=== PATIENT | female | born 1995 | race Caucasian/White ===

== ENCOUNTER 2023-02-15 11:06 | Outpatient (CLI) | payer BC, SELFPAY ==
[2023-02-15 12:12] LABS: Basophils Percent Auto 0.3 % (0.2-1.2); Eosinophils Percent Auto 0.4 % (0-4.4); Hematocrit 35.4 % (37.0-47.0); Hemoglobin 11.3 g/dL (12.0-15.0); Immature Granulocyte Absolute 0.03 K/mm3 (0.00-0.031); Immature Granulocyte Percent A 0.3 % (0-0.5); Lymphocytes Absolute Auto 1.74 K/mm3 (0.9-3.2); Lymphocytes Percent Auto 17.4 % (18.3-44.2); Mean Corpuscular HGB Conc 31.9 g/dl (32-36); Mean Corpuscular Hemoglobin 30.5 pg (26-34); Mean Corpuscular Volume 95.7 fl (80-100); Monocytes Absolute Auto 0.7 K/mm3 (0.1-0.6); Monocytes Percent Auto 7.4 % (2.6-8.5); Neutrophils Absolute Auto 7.4 K/mm3 (1.3-6.7); Neutrophils Percent Auto 74.2 % (45.5-73.1); Platelet Count Result 181 k/mm3 (150-375); Red Cell Distribution Width 13.7 % (11.5-14.5)
[2023-02-15 12:45] LABS: Rapid Plasma Reagin Non-Reactive (NonReactive)
== END 2023-02-15 11:07 | disposition home or self-care (01) ==
PROVIDERS: PCP Physician Assistant; Visit Provider Obstetrics & Gynecology
DX: Z01.818 Encounter for other preprocedural examination (principal)
CPT/HCPCS: 36415; 85025; 86592; 86850; 86900; 86901

== ENCOUNTER 2023-02-16 05:18 | Inpatient (IN) | payer BC, SELFPAY ==
[2023-02-16] VITALS (53 sets, daily range): BP systolic 83–139; BP diastolic 41–88; PULSE 45–81; RESP 13–18; TEMP 36.1–37.2; O2SAT 95–100; BMI 23.3
[2023-02-16] MEDS: LACTATED RINGERS 1,000 ML 125 ML IV CONT (07:00)
--- NOTE | 2023-02-16 07:08 | P.PNAN_ITS ---
Anes - Initial Pre Proc Eval Procedure: Operation Date: 02/16/23 07:30 Proposed Procedures p Section - Sophie Ward MD Date/Time: 02/16/23 07:08 Surgeon: Sophie Ward MD Pre Op Diagnosis: C/S Patient Data Age: 28 Gender: F Height: 1.57 m Weight: 58 kg Last Vital Signs Pulse 62 02/16/23 07:01 BP 83/58 L 02/16/23 07:01 O2 Del Method Room Air 02/16/23 06:40 Allergies Allergy/AdvReac Type Severity Reaction Status Date / Time No Known Allergies Allergy Verified 01/25/23 12:14 Home Medications Medication Instructions Recorded Confirmed Type famotidine 20 mg tablet (Pepcid) 20 mg PO HS 01/25/23 02/16/23 History vits no.126-ferrous fum 1 tablet PO DAILY 01/25/23 01/25/23 History 28 mg iron-folic acid 800 mcg tablet (Classic ) Patient hx anesthesia problems: none Family hx anesthesia problems: none Results Review: All pre-operative results and documents have been reviewed as part of the pre- operative evaluation. [facility] Family History Family History Father Diabetes mellitus Mother Depression Social History Social History Smoking status: Never smoker Substance use: never Lack of Transportation: No Lack of Food: Never True Current Housing: I Have Housing Concerned About Future Housing: No Difficulty Paying Gas/Electric Bills: No Difficulty Paying for Meds: No Currently Unemployed: No Education: Bachelor's Degree Difficulty w/ Childcare or Family Care: No Spiritual care concerns: No Anes - Eval Final PreProcedure Day of Procedure 02/16/23 07:08 Patient weight: normal Heart: regular rate and rhythm Lungs: clear to auscultation Airway: Mallampati scale class II Neurological: alert and oriented Last oral intake: >/= 8 hours ASA classification: II Emergent: no Anesthetic plan: proceed Anesthesia type and monitoring: regional spinal and standard monitoring Results Review: All pre-operative results and documents have been reviewed as part of the pre- operative evaluation. Informed Consent: The patient's anesthetic plan and its attendant risks and benefits were discussed with the patient/family/POA. Questions were solicited and answers provided to the satisfaction of the patient/family/POA.
--- NOTE | 2023-02-16 07:33 | PM.IMHP ---
H&P: HPI History of Present Illness Date/Time: 02/16/23 07:33 Chief Complaint: Term Narrative: 28-year-old multi with a term infant in the breech position. To proceed with delivery. She understands the procedure and she understands risk. She understands there is risk of in injury in the injuries may result in hospitalization, more surgery, and severe illness. She understands there is risk of hemorrhage and infection. She denies any nausea, vomiting, fever, chills. She denies any chest pain or shortness of breath. Review of Systems Review of Systems: All systems reviewed & are unremarkable except as noted in HPI and below Constitutional: Constitutional: Denies chills, Denies fatigue, Denies fever(s) and Denies weakness Eyes: Eyes: Denies blurry vision, Denies change in vision, Denies loss of peripheral vision, Denies loss of vision, Denies other visual disturbances and Denies eye pain ENT: Denies vertigo, Denies dizziness, Denies hearing loss, Denies mouth pain, Denies nasal obstruction, Denies neck mass and Denies neck pain Cardiovascular: Cardiovascular: Denies chest pain, Denies diaphoresis, Denies syncope, Denies leg edema and Denies dyspnea Respiratory: Respiratory: Denies chest congestion, Denies cough, Denies hemoptysis, Denies dyspnea and Denies wheezing Gastrointestinal: Gastrointestinal: Denies abdominal pain, Denies constipation, Denies diarrhea, Denies nausea and Denies vomiting Genitourinary: Genitourinary: Denies hematuria, Denies change in libido, Denies nocturia, Denies genital lesions, Denies flank pain and Denies urinary urgency Musculoskeletal: Musculoskeletal: Denies abnormal gait, Denies back pain, Denies myalgias, Denies arthralgias, Denies joint swelling, Denies muscle weakness and Denies neck pain Integumentary/Breasts: Skin/Breast: Denies swelling, Denies breast pain, Denies breast mass, Denies dry skin, Denies nipple discharge, Denies unusual bruising and Denies jaundice Neurologic: Denies Neuro-related abnormal movements, Denies Abnormal speech present, Denies abnormal gait, Denies behavioral changes, Denies confusion, Denies vertigo, Denies dizziness, Denies syncope, Denies loss of vision, Denies memory loss, Denies convulsions and Denies weakness Psychiatric: Psychiatric: Denies abnormal sleep pattern, Denies behavioral changes, Denies change in libido, Denies confusion, Denies depression, Denies anhedonia and Denies memory loss Endocrine: Endocrine: Reports no additional endocrine complaints, Denies change in libido and Denies fatigue Hematologic/Lymphatic: Hematologic/Lymphatic: Reports no additional hematologic/lymphatic complaints Allergic/Immunologic: Allergic/Immunologic: Reports no additional allergic/immunologic complaints and Denies wheezing PMFSH Family History Family History Father Diabetes mellitus Mother Depression Social History Social History Smoking status: Never smoker Substance use: never Lack of Transportation: No Lack of Food: Never True Current Housing: I Have Housing Concerned About Future Housing: No Difficulty Paying Gas/Electric Bills: No Difficulty Paying for Meds: No Currently Unemployed: No Education: Bachelor's Degree Difficulty w/ Childcare or Family Care: No Spiritual care concerns: No Meds Home Medications and Allergies Home Medications Medication Instructions Recorded Confirmed Type famotidine 20 mg tablet (Pepcid) 20 mg PO HS 01/25/23 02/16/23 History vits no.126-ferrous fum 1 tablet PO DAILY 01/25/23 01/25/23 History 28 mg iron-folic acid 800 mcg tablet (Classic ) Allergies Allergy/AdvReac Type Severity Reaction Status Date / Time No Known Allergies Allergy Verified 01/25/23 12:14 Vital Signs Vital Signs - 24 hr 02/16/23 05:50 02/16/23 06:00 02/16
[2023-02-16] MEDS: OXYTOCIN 30 UNITS/NS 500 ML 30 UNITS/500 ML BAG 125 UNITS IV CONT (08:00)
[2023-02-16] MEDS: ONDANSETRON INJ 4 MG/2 ML VIAL IV PUSH (08:00)
--- NOTE | 2023-02-16 10:47 | OBPPTRN ---
Patient transferred to post room #279 via stretcher. Support person present. Oriented to unit, room, information board, rooming in, admission packet and security measures. Patient verbalizes understanding.
--- NOTE | 2023-02-16 12:38 | W.PM.PROC2 ---
Procedure Note - Detailed Date of Procedure 02/16/23 Pre-op Diagnosis Term , breech presentation Post-op Diagnosis Same Procedure Performed Low-transverse section Surgeon Sophie Ward MD Anesthesia Spinal Indications breech Findings Normal gestational maternal anatomy, average size infant, normal Apgars. Description of Procedure The patient was taken the operating room. She was prepped and draped in dorsal supine position with a leftward tilt. This was done after spinal anesthetic was applied. A low-transverse skin incision was made and carried down till of the fascia with the knife. The fascial incision was made with the knife. The fascial incision was extended laterally with Cao scissors. The fascia was tented upward superiorly and inferiorly the rectus muscles were dissected off bluntly. The rectus muscles were the midline. The preperitoneal fat and peritoneum were dissected open bluntly at the superior aspect of the rectus muscles. The peritoneal incision was extended superior and inferior with good position of bladder. The uterine incision was made with a scalpel down to the level of the amniotic cavity. The amniotic cavity was entered bluntly. The was delivered. The cord was clamped and cut and the was handed off to waiting pediatric staff. Cord bloods were obtained. The placenta was removed manually. The uterus was exteriorized. The uterus was cleared of all clots, debris and membranes. The uterus was closed in 0 Vicryl running lock fashion. An imbricating over a was placed along the incision line as well. The uterus was returned to the abdomen. The gutters were cleared of all clots and debris. The fascia was closed with 0 Vicryl running fashion. The subcutaneous tissue was irrigated pinpoint bleeders were cauterized. The skin was closed with subcuticular absorbable tacos. The skin incision line was covered with glue. The patient tolerated the procedure well. She has taken recovery room in stable condition. Sponge lap and needle counts were correct x2. Complications No immediate complications Condition Stable Disposition PACU
[2023-02-16] MEDS: KETOROLAC 30 MG/ML VIAL (*BKC) IV PUSH (12:45)
[2023-02-16] MEDS: HYDROcodone/acetaminophen (*CRX) 10-325 MG TABLET 1 TAB PO (12:45)
--- NOTE | 2023-02-16 12:55 | PC.NURSE ---
Introductions were made, then consulted with patient to assess needs related to . Mother led the conversation with her?plans to feed?her and the?experience so far. Mother works well with her with encouragement and education. Encouraged understanding of the benefits of skin to skin (demonstrating unwrapping infant and placing upright on her chest), stimulating with massage touch, changing positions to encourage wakefulness, how to watch for early feeding cues, responsive feeding, feeding on demand (aiming for 8-12 times in 24 hours, about every 2-3 hours), milk production, building/maintaining a milk supply, duration of feeding, signs of adequate intake/output and how to record on the feeding sheet. Reviewed positioning and ear, shoulder, hip alignment, supporting the breast to facilitate a deep latch, asymmetrical latch (off-center), leading with the chin with a big, open, wide gape and body close to mother. Infant latched optimally to the right and left breast in football and cross cradle positions. Education given to mother of how to visualize suck/swallow ratios and listen for drinking at the breast. Infant was able to maintain latch without discomfort to mother. Nipple care reviewed with optimal latch and good positioning. Reminding mother of comfort measures of healing with a warm and wet washcloth to rinse breast, then leave open to air-dry as needed. Reviewed good handwashing when or touching the breast/nipples to prevent infection. Resources used to facilitate learning were used with the visual handouts and mom and baby guide. Mother voiced understanding of skin to skin, stimulating with massage touch, responsive feedings, hand expressed colostrum, talking to infant to encourage if it has been 2 -2.5 hours since the start of the last , to call if does not latch, or if there is discomfort with . Resources provided for inpatient with business card, feeding sheet and the mom/baby guide. Parents voiced understanding of information, demonstrated learning and will call if there is a request for assistance. Reported to primary RN.
[2023-02-16] MEDS: POLYSACCHARIDE IRON COMPLEX 150 MG CAPSULE PO (16:51)
[2023-02-16] MEDS: DOCUSATE SODIUM 100 MG CAPSULE PO (16:51)
[2023-02-16] MEDS: diphenhydrAMINE HCl CAP 25 MG CAPSULE PO (16:51)
[2023-02-16] MEDS: diphenhydrAMINE HCl CAP 25 MG CAPSULE (23:38)
[2023-02-17] MEDS: SIMETHICONE 80 MG TAB.CHEW PO ×4 (07:45→21:12)
[2023-02-17] MEDS: HYDROcodone/acetaminophen (*CRX) 5-325 MG TABLET 1 TAB PO ×3 (07:45→21:10)
[2023-02-17] MEDS: MULTIVIT/MIN/PREN/FOL AC/IRON TABLET 1 TAB PO (07:45)
[2023-02-17] MEDS: DOCUSATE SODIUM 100 MG CAPSULE PO (07:45)
[2023-02-17] MEDS: IBUPROFEN 600 MG TABLET PO ×3 (07:45→21:10)
--- NOTE | 2023-02-17 07:52 | PM.OBPNVD ---
OB - PN: Subj Subjective Date/time seen: 02/17/23 07:52 s/p section doing well breast feeding flatus present OB - PN A/P Plan day: 1 Plan: routine care Time Spent With Patient Time: Total time spent is greater than 50% in coordination of care (as documented) at patient's floor/unit and/or counseling patient: Review of Systems Review of Systems: All systems reviewed & are unremarkable except as noted in HPI and below Exam Const: General: cooperative Chest: Chest palpation & inspection: normal inspection of the chest Resp: Effort & Inspection: normal respiratory effort Cardio: Rate: regular rate Rhythm: regular rhythm GI: Other: Incision CDI Skin: General skin exam: normal color Extrem: Right lower extremity: normal to inspection Left lower extremity: normal to inspection
[2023-02-17 08:39] LABS: Basophils Percent Auto 0.2 % (0.2-1.2); Eosinophils Absolute Auto 0.1 K/mm3 (0-0.3); Eosinophils Percent Auto 0.3 % (0-4.4); Hematocrit 34.2 % (37.0-47.0); Hemoglobin 10.9 g/dL (12.0-15.0); Immature Granulocyte Absolute 0.08 K/mm3 (0.00-0.031); Immature Granulocyte Percent A 0.5 % (0-0.5); Lymphocytes Absolute Auto 1.32 K/mm3 (0.9-3.2); Lymphocytes Percent Auto 8.3 % (18.3-44.2); Mean Corpuscular HGB Conc 31.9 g/dl (32-36); Mean Corpuscular Hemoglobin 30.7 pg (26-34); Mean Corpuscular Volume 96.3 fl (80-100); Mean Platelet Volume 10.7 fl (7.4-10.4); Neutrophils Absolute Auto 13.4 K/mm3 (1.3-6.7); Neutrophils Percent Auto 84.7 % (45.5-73.1); Platelet Count Result 142 k/mm3 (150-375); Red Blood Count 3.55 M/mm3 (4.2-5.4); Red Cell Distribution Width 13.6 % (11.5-14.5); White Blood Count 15.8 K/mm3 (4.5-10.0)
[2023-02-17 09:05] VITALS: BP 111/65; PULSE 79; RESP 18; TEMP 37.2; O2SAT 99
[2023-02-17] MEDS: diphenhydrAMINE HCl CAP 25 MG CAPSULE PO ×3 (09:30→21:12)
[2023-02-17] MEDS: HYDROcodone/acetaminophen (*CRX) 10-325 MG TABLET 1 TAB PO (12:00)
--- NOTE | 2023-02-17 14:23 | WPDANLDPN2 ---
Anes-Prog Note L&D Date/Time: 02/17/23 14:23 Neuro status: Neuro function grossly intact. Vital Signs: Last Vital Signs Temp 37.2 C 02/17/23 09:05 Pulse 79 02/17/23 09:05 Resp 18 02/17/23 09:05 BP 111/65 02/17/23 09:05 Pulse Ox 99 02/17/23 09:05 O2 Del Method Room Air 02/16/23 23:39 Pain score (VAS): 0 I/O: Intake & Output 02/16/23 02/17/23 02/17/23 23:59 07:59 15:59 Intake Total 100 100 Output Total 600 Balance -500 100 Patient feedback: Patient satisfied with anesthetic care.
--- NOTE | 2023-02-17 14:23 | WPDANLDNPN2 ---
Anes-Prog Note L&D-Neuraxial Date/Time: 02/17/23 14:23 Patient feedback: Patient satisfied with post-operative pain management.
[2023-02-17 20:54] VITALS: BP 137/96; PULSE 89; RESP 18; TEMP 36.7; O2SAT 98
[2023-02-18] MEDS: HYDROcodone/acetaminophen (*CRX) 10-325 MG TABLET 1 TAB PO ×2 (02:25→17:16)
[2023-02-18] MEDS: SIMETHICONE 80 MG TAB.CHEW PO ×3 (02:25→17:16)
[2023-02-18] MEDS: HYDROcodone/acetaminophen (*CRX) 5-325 MG TABLET 1 TAB PO ×3 (07:09→20:30)
[2023-02-18] MEDS: IBUPROFEN 600 MG TABLET PO ×3 (07:09→23:30)
[2023-02-18 07:10] VITALS: BP 126/84; PULSE 72; RESP 18; TEMP 36.9
--- NOTE | 2023-02-18 08:31 | P.PNOB_ITS ---
OB - PN: Subj Subjective Date/time seen: 02/18/23 08:31 Patient comments: no complaints, pain well controlled, incisional pain, tolerating diet and flatus present OB - PN: Obj Data Labs 02/17/23 05:11 Labs: Laboratory Results - last 24 hr 02/17/23 05:11 WBC 15.8 H RBC 3.55 L Hgb 10.9 L Hct 34.2 L MCV 96.3 MCH 30.7 MCHC 31.9 L RDW 13.6 Plt Count 142 L MPV 10.7 H Immature Gran % (Auto) 0.5 Neut % (Auto) 84.7 H Lymph % (Auto) 8.3 L [place] % (Auto) 6.0 Eos % (Auto) 0.3 Baso % (Auto) 0.2 Lymph # (Auto) 1.32 [place] # (Auto) 1.0 H Eos # (Auto) 0.1 Baso # (Auto) 0.0 Abs Immat Gran (auto) 0.08 H Absolute Neuts (auto) 13.4 H Absolute Nucleated RBC 0.0 Nucleated RBC % 0.0 OB - PN A/P Plan day: 2 Plan: routine care Comments: POD#2 LTCS - no problems, Time Spent With Patient Time: Total time spent is greater than 50% in coordination of care (as documented) at patient's floor/unit and/or counseling patient: Exam Const: General: comfortable, no acute distress and alert Resp: Effort & Inspection: normal respiratory effort Auscultation: no crackles, no rales and no rhonchi Cardio: Rate: regular rate Heart sounds: no click, no murmurs and no rubs GI: Inspection: non-distended GI Palp: No Tenderness to palpation present (GI) Auscultation: normal bowel sounds Other: Incision - CDI Extrem: General: normal to inspection, no pedal edema and no calf tenderness
[2023-02-18] MEDS: MULTIVIT/MIN/PREN/FOL AC/IRON TABLET 1 TAB PO (09:48)
[2023-02-18] MEDS: DOCUSATE SODIUM 100 MG CAPSULE PO ×2 (09:48→17:16)
[2023-02-18] MEDS: TETANUS,DIPHTHERIA,AC PERTUSSIS ADULT (0.5 ML) BOOSTRIX IM (13:28)
[2023-02-18 20:00] VITALS: BP 120/83; PULSE 87; RESP 18; TEMP 36.7; O2SAT 97
[2023-02-19] MEDS: ACETAMINOPHEN 325 MG TABLET 650 MG PO (05:10)
[2023-02-19 08:44] VITALS: BP 126/83; PULSE 91; RESP 18; TEMP 36.7
[2023-02-19] MEDS: DOCUSATE SODIUM 100 MG CAPSULE PO (08:44)
[2023-02-19] MEDS: MULTIVIT/MIN/PREN/FOL AC/IRON TABLET 1 TAB PO (08:44)
[2023-02-19] MEDS: IBUPROFEN 600 MG TABLET PO (08:44)
--- NOTE | 2023-02-19 09:56 | PM.OBPNVD ---
OB - PN: Subj Subjective Date/time seen: 02/19/23 09:56 Patient comments: no complaints, pain well controlled, incisional pain, tolerating diet and flatus present OB - PN: Obj Data Labs 02/17/23 05:11 OB - PN A/P Plan day: 2 Plan: routine care Comments: POD#2 LTCS - no problems, Time Spent With Patient Time: Total time spent is greater than 50% in coordination of care (as documented) at patient's floor/unit and/or counseling patient: Exam Const: General: comfortable, no acute distress and alert Resp: Effort & Inspection: normal respiratory effort Auscultation: no crackles, no rales and no rhonchi Cardio: Rate: regular rate Heart sounds: no click, no murmurs and no rubs GI: Inspection: non-distended GI Palp: No Tenderness to palpation present (GI) Auscultation: normal bowel sounds Other: Incision - CDI Extrem: General: normal to inspection, no pedal edema and no calf tenderness
--- NOTE | 2023-02-19 09:56 | PM.OBDSVD ---
DS: Admitting Diagnosis Discharge Date 02/19/23 Admitting Diagnosis term DS: Discharge Diagnosis Discharge Diagnosis (1) Term : Code(s): Z34.90 - Encounter for supervision of normal , unspecified, unspecified trimester Status: Acute OB - DS: Summary OB Procedures : None OB Procedures Intrapartum: Spontaneous Vag Delivery OB Procedures: : None Peripartum Data Procedures: Procedures Operation Date: 02/16/23 07:30 Actual Procedure Side Surgeon p Section Not Applicable Sophie Ward MD Time Spent with Patient Time attestation: Total time spent providing and/or coordinating discharge services: Discharge Plan Discharge Attending physician on discharge: Sophie Ward Discharging Clinician: Sophie Ward Patient Disposition: Home, Self-Care Activity: pelvic rest Diet: regular Patient Instructions: Antibiotic Form Stand Alone Forms: General Discharge Information Follow-up/Referrals: Sophie Ward MD [Physician] - Discharge Medications: Continued famotidine [Pepcid] 20 mg Tablet 20 mg PO HS Classic 28 mg iron- 800 mcg Tablet 1 tablet PO DAILY Date of admission: 02/16/23 05:18 Primary Care Provider: Joe,Mahesh Spaulding Admitting Provider: Sophie Ward Attending physician on admission: Sophie Ward Condition: Stable
[2023-02-20 08:25] VITALS: BP 136/78; PULSE 82; RESP 18; TEMP 36.8; O2SAT 100
== END 2023-02-19 11:25 | disposition home or self-care (01) | DRG 788 ==
LOC: ANHLDR 05:26 → ANHOB2 10:50
PROVIDERS: Admitting Provider Obstetrics & Gynecology; PCP Physician Assistant; Visit Provider Obstetrics & Gynecology
PROC: 10D00Z1 Extraction of Products of Conception, Low, Open Approach (ICD-10-PCS; CPT 59514; principal; 2023-02-16 07:30)
DX: O32.1XX0 Maternal care for breech presentation, not applicable or unspecified (principal); Z37.0 Single live birth; Z3A.37 37 weeks gestation of pregnancy; O24.429 Gestational diabetes mellitus in childbirth, unspecified control
CPT/HCPCS: 36415; 85025; 90715; A9270; J1885; J2274; J2405; J2590; J7120

== ENCOUNTER 2024-01-18 22:33 | Emergency (ER) | payer BC, SELFPAY ==
--- NOTE | ~2024-01-18 | US_ITS ---
EXAMINATION: US OB <=14 wk fetus w TV DATE: 01/19/2024 03:26 INDICATION: Vaginal bleeding. Early . TECHNIQUE: Real-time transabdominal and transvaginal pelvic ultrasound was performed. COMPARISON: None. FINDINGS: TRANSABDOMINAL ULTRASOUND: The uterus measures 8.7 x 5.5 x 7.0 cm. TRANSVAGINAL ULTRASOUND: There is an intrauterine gestational sac. A yolk sac is identified. The fet al crown rump length measures 3 mm, which correlates with an estimated gestational age of 5 weeks and 6 day(s) (+/-) 4 day(s). heart motion is identified measuring 105 beats per minute (bpm) by M- mode Doppler. The right ovary measures 1.9 x 2.3 x 1.5 cm. The left ovary measures 2.2 x 2.4 x 1.9 cm . There is no free fluid in the pelvis. IMPRESSION: 1. Single living intrauterine gestation with estimated date of delivery of 09/14/2024. Reviewed, dictated and finalized at location A. IMPRESSION: 1. Single living intrauterine gestation with estimated date of delivery of 08/31.
[2024-01-18 22:39] VITALS: BP 116/81; PULSE 87; RESP 20; TEMP 37.1; O2SAT 100
--- NOTE | 2024-01-19 00:59 | ED.FEMALEGU ---
HPI - Female Genitourinary General Chief complaint: Vaginal Bleeding <BRODY Soares Last Filed: 01/19/24 02:54> Stated complaint: , spotting <BRODY Soares Last Filed: 01/19/24 02:54> Time Seen by Provider: 01/19/24 00:40 <BRODY Soares Last Filed: 01/19/24 02:54> History of Present Illness HPI Narrative: 29-year-old female who is , a currently 8-10 weeks , LMP 11/28/2023 presents to the emergency department for vaginal bleeding that started the past day. Patient states she noticed some light spotting after lunch for some lower abdominal cramping. She has not had to change her pad all day. She presents to the ED for further evaluation. She has not had an ultrasound for this . She endorses some nausea but no emesis. Denies fever, dizziness, syncope, dysuria or hematuria, vaginal discharge or concern for STDs. Her OBGYN is Dr. Ward. <BRODY Soares Last Filed: 01/19/24 02:54> Related Data Home medications: Home Medications Medication Instructions Recorded Confirmed famotidine 20 mg tablet (Pepcid) 20 mg PO HS 01/25/23 02/16/23 vits no.126-ferrous fum 1 tablet PO DAILY 01/25/23 01/25/23 28 mg iron-folic acid 800 mcg tablet (Classic ) <BRODY Soares Last Filed: 01/19/24 02:54> Allergies/Adverse reactions: Allergies Allergy/AdvReac Type Severity Reaction Status Date / Time No Known Allergies Allergy Verified 01/25/23 12:14 <BRODY Soares Last Filed: 01/19/24 02:54> Review of Systems Review of Systems: CONSTITUTIONAL: Denies fever, chills, or sweats. EYES: Denies visual changes, redness, or discharge. ENT: Denies rhinorrhea, congestion, sore throat, or otalgia. CARDIOVASCULAR: Denies chest pain, palpitations, or edema. RESPIRATORY: Denies cough or dyspnea. GASTROINTESTINAL: See HPI GENITOURINARY: see HPI SKIN: Denies rash or itching. MUSCULOSKELETAL: Denies back pain, joint pain, or myalgia. NEUROLOGIC: Denies headache, numbness, or weakness. PSYCHIATRIC: Denies anxiety or depression. <Kathrin Daniels PA-C - Last Filed: 01/19/24 02:54> PMFSH Family History Family History: Family History Father Diabetes mellitus Mother Depression <Kathrin Daniels PA-C - Last Filed: 01/19/24 02:54> Social History Social History: Social History Smoking status: Never smoker Substance use: never Lack of Transportation: No Lack of Food: Never True Current Housing: I Have Housing Concerned About Future Housing: No Difficulty Paying Gas/Electric Bills: No Difficulty Paying for Meds: No Currently Unemployed: No Education: Bachelor's Degree Difficulty w/ Childcare or Family Care: No Spiritual care concerns: No <Kathrin Daniels PA-C - Last Filed: 01/19/24 02:54> Exam Narrative: GENERAL: Well-appearing, well-nourished, and in no acute distress. HEAD: Normocephalic, atraumatic. EYES: PERRLA and EOMI. ENT: Nares clear, no rhinorrhea or epistaxis. Mucous membranes moist. NECK: Supple. CHEST: Clear to auscultation. No respiratory distress. HEART: Regular rate and rhythm. No murmur heard. Normal peripheral pulses. ABDOMEN: Soft, nontender, nondistended, normal active bowel sounds. no rebound, guarding or rigidity. No CVA tenderness. : Normal external genitalia. No active bleeding vaginal vault. Cervical os is closed. No cervical motion tenderness, adnexal masses or tenderness. No blood clots or tissues visualized. EXTREMITIES: Normal range of motion. No edema. SKIN: Warm, dry, no rash. NEURO: No focal deficits. Alert and oriented x3 <Kathrin Daniels PA-C - Last Filed: 01/19/24 02:54> Course RADIO COMMUNICATIONS MECHANICIAN/PA Physician Supervision This visit was performed by both the physician and an APC. I heath
[2024-01-19 02:47] LABS: Basophils Absolute Auto 0.1 K/mm3 (0.0-0.1); Basophils Percent Auto 0.5 % (0.2-1.2); Eosinophils Absolute Auto 0.2 K/mm3 (0-0.3); Eosinophils Percent Auto 1.5 % (0-4.4); Hematocrit 33.5 % (37.0-47.0); Hemoglobin 11.2 g/dL (12.0-15.0); Immature Granulocyte Absolute 0.02 K/mm3 (0.00-0.031); Immature Granulocyte Percent A 0.2 % (0-0.5); Lymphocytes Absolute Auto 3.01 K/mm3 (0.9-3.2); Lymphocytes Percent Auto 31.1 % (18.3-44.2); Mean Corpuscular HGB Conc 33.4 g/dl (32-36); Mean Corpuscular Hemoglobin 32.2 pg (26-34); Mean Corpuscular Volume 96.3 fl (80-100); Mean Platelet Volume 9.1 fl (7.4-10.4); Monocytes Absolute Auto 0.7 K/mm3 (0.1-0.6); Monocytes Percent Auto 7.6 % (2.6-8.5); Neutrophils Absolute Auto 5.7 K/mm3 (1.3-6.7); Neutrophils Percent Auto 59.1 % (45.5-73.1); Platelet Count Result 204 k/mm3 (150-375); Red Blood Count 3.48 M/mm3 (4.2-5.4); Red Cell Distribution Width 12.1 % (11.5-14.5); White Blood Count 9.7 K/mm3 (4.5-10.0)
[2024-01-19 02:48] LABS: INR 1.1; Prothrombin Time 14.3 Seconds (11.1-14.7)
[2024-01-19 02:49] LABS: Partial Thromboplastin Time 27.4 Seconds (22.3-36.8)
[2024-01-19 02:50] LABS: Appearance Urine Clear (Clear); Bacteria Urine None Seen /hpf; Bilirubin Urine Negative (Negative); Blood Urine Trace (Negative); Color Urine Yellow (Yellow); Glucose Urine UA Negative (Negative); Ketones Urine Negative (Negative); Leukocyte Esterase Ur Negative LEU/UL (Negative); Nitrate Urine Negative (Negative); Non Pathogenic Casts 0-2; Protein Urine Negative (Negative); RBC Urine 0-2 /hpf (0-2); Squamous Epithelial Cell Urine Occasional /hpf (Few); WBC Urine 0-5 /hpf (0-3); pH Urine 7.5 (5.0-9.0)
[2024-01-19 03:08] LABS: Add Urine Microscopic? YES
[2024-01-19 03:29] LABS: Alanine Aminotransferase 19 U/L (6-35); Albumin Level 4.1 g/dL (3.5-5.1); Alkaline Phosphatase 90 U/L (38-126); Anion Gap 4 mmol/L (4-12); Aspartate Amino Transferase 22 U/L (14-36); Bilirubin,Total 0.7 mg/dL (0.2-1.3); Blood Urea Nitrogen 19 mg/dL (7-17); Calcium 9.2 mg/dL (8.4-10.2); Carbon Dioxide 25 mmol/L (22-30); Chloride 104 mmol/L (98-107); Estimated CRCL calculation 91 ml/min; Estimated Glomerular Filt Rate > 60; Glucose 85 mg/dL (65-110); Potassium 3.7 mmol/L (3.4-5.0); Sodium 133 mmol/L (137-145)
[2024-01-19 05:55] VITALS: BP 101/59; PULSE 90; RESP 16; O2SAT 100
[2024-01-19 07:31] LABS: Alanine Aminotransferase 19 U/L (6-35); Albumin Level 4.1 g/dL (3.5-5.1); Alkaline Phosphatase 90 U/L (38-126); Anion Gap 4 mmol/L (4-12); Aspartate Amino Transferase 22 U/L (14-36); Bilirubin,Total 0.7 mg/dL (0.2-1.3); Blood Urea Nitrogen 19 mg/dL (7-17); Calcium 9.2 mg/dL (8.4-10.2); Carbon Dioxide 25 mmol/L (22-30); Chloride 104 mmol/L (98-107); Estimated CRCL calculation 91 ml/min; Estimated Glomerular Filt Rate > 60; Glucose 85 mg/dL (65-110); Potassium 3.7 mmol/L (3.4-5.0); Sodium 133 mmol/L (137-145)
== END 2024-01-19 05:55 | disposition home or self-care (01) ==
PROVIDERS: Emergency Provider Physician Assistant
DX: O20.0 Threatened abortion (principal); Z3A.01 Less than 8 weeks gestation of pregnancy
CPT/HCPCS: 36415; 76801; 76817; 80053; 81001; 84702; 85025; 85461; 85610; 85730; 86850; 86900; 86901; 99284

== ENCOUNTER 2024-01-20 13:30 | Outpatient (CLI) | payer BC, SELFPAY | END 2024-01-20 13:31 | disposition home or self-care (01) | LOC: ANHLAB 13:32 | PROVIDERS: Visit Provider Obstetrics & Gynecology | DX: O20.0 Threatened abortion (principal); Z3A.00 Weeks of gestation of pregnancy not specified | CPT/HCPCS: 36415; 84702; 86850; 86900; 86901 ==

== ENCOUNTER 2024-09-11 18:11 | Observation (INO) | payer BC, SELFPAY ==
--- NOTE | 2024-09-11 18:11 | PC.NURSE ---
Pt arrives to unit with contractions.
--- NOTE | 2024-09-11 18:28 | PC.NURSE ---
Cassidy Astorga CNM on unit, update on pt and cervical exam. Orders received to perform cervical exam in one hour.
[2024-09-11 19:53] VITALS: TEMP 36.3
--- NOTE | 2024-09-11 20:04 | PC.NURSE ---
Called Cassidy Astorga CNM, update on pt, contractions, and cervical exam. Orders received to discharge pt if they desire to leave with instructions to keep next scheduled appointment and when to return to the unit.
--- OUTSIDE RECORDS SUMMARY | 2024-09-11 20:24 | XMS_ITS | Referral Summary ---
Author Organization [address] Address [address] [place] [id number] Care Team Providers Care Nonprofit Director Name Role Phone LAVINIA Mock Jr., Mahesh Arora Primary Care Provide r Fernanad Rojas MD Unavailable [phone] Allergies No known active allergies Medications etonogestreL-ethin yl estradioL (NUVARING, ELURYNG) 0.12-0.015 mg/24 hr vaginal ring 03/07/2021 Act edie Active Problems No known active problems Immunizations Name Administration Dates Next Due Influenza, Unspecified 04/30/2020 Pfizer SARS-CoV-2 Monovalent Vaccination (12+ Yrs) PURPLE 01/15/2021,12/18/2020 Social History Tobacco Use Types Packs/Day Years Used Date Smoking Tobacco: Never AUDIT-C Answer Date Recorded Q1: How often do you have a drink containing alc ohol? 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 Gender Identity Not on file Sexual Orientation Not on file Last Filed Vital Signs Vital Sign Reading Time Taken Comments Blood Pressure 100/68 04/01/2021 9:59 AM CDT Pulse 87 04/01/2021 9:59 AM CDT Temperature 36.6 C (97.8 F) 04/01/2021 9:59 AM CDT Respiratory Rate 12 04/01/2021 9:59 AM CDT Oxygen Saturation 98% 04/01/2021 9:59 AM CDT Inhaled Oxygen Concentration - - Weight 47.5 kg (104 lb 12.8 oz) 04/01/2021 9:59 AM CDT Height 157.5 cm (5' 2 ) 04/01/2021 9:59 AM CDT Body Mass Index 19.17 04/01/2021 9:59 AM CDT Plan of Treatment Not on file Procedures Procedure Name Priority Date/Time Associated Diagnosis Comments PAP SMEAR Routine 03/22/2019 from Last 3 Months or Most Recently Relevant to Health Maintenance Results * PAP SMEAR (03/22/2019) SCRIBED Pap test normal us Historical Provider HEALTH MAINTENANCE Final Result from Last 3 Months or Most Recently Relevant to Health Maintenance Insurance [employer] Member Subscriber Plan / Payer (Ef fective 2019-Present) Name:Yanique Mccarthy Relation to Subscriber:Self Name:Yanique Mccarthy Payer ID:[id number] (NAIC) Type:[employer] [place] [employer] Address: [facility] [id number] [place] [id number] [place] [employer] Care Teams Nonprofit Director Relationship Specialty Start Date End Date Mahesh Mock Jr., PA PCP - General Family Medicine 03/22/21 Fernanda Rojas MD [address] [place] [address] Consulting Physician Family Medicine 03/22/21
--- OUTSIDE RECORDS SUMMARY | 2024-09-11 20:24 | XMS_ITS | Clinical Summary ---
Author Organization [facility] Address [address] [place] [address] Care Team Providers Care Strategic Insights Lead Name Role Phone Unavailable Primary Care Provider Unavailabl e Source Comments [facility],non-owned Affiliates and Associated Physician Practices is amultiple site organization consisting of ambulatory clinics and hospital sitesin [place], [place], [place] and [place]. This disclosure is being madepursuant to the Care Everywhere program and may not contain all information available regarding this patient. Last updated 18.[facility] Encounters Date Type Department Care Team Description 09/02/2024 8:45 AM ADMITTED ATTORNEYS - 09/02/2024 11:59 PM ADMITTED ATTORNEYS Hospital Encounter [facility] [address] [place] [id number] Barbara Vicente MD Discharge Disposition: Home or Self Care 08/12/2024 8:02 AM ADMITTED ATTORNEYS - 08/12/2024 11:59 PM ADMITTED ATTORNEYS Hospital Encounter [facility] [address] [place] [id number] Barbara Vicente MD Discharge Disposition: Home or Self Care from Last 3 Months Social History Tobacco Use Types Packs/Day Years Used Date Smoking Tobacco: Never Assessed Estimated Date of Delivery Comme nts Yes 09/12/2024 Based on Patient Reported Sex and Gender Information Value Date Recorded Sex Assigned at Not on file Gender Identity Not on file Sexual Orientation Not on file Plan of Treatment Health Maintenance Due Date Last Done Comments PAP SMEAR 1994 HIV SCREENING 2009 HEPATITIS C SCREENING 01/06/2012 DTAP/TDAP/TD VACCINES (1 - Tdap) 2013 HEPATITIS B VACCINE (1 of 3 - 19+ 3-dose series) 2013 COVID-19 VACCINE (3 - 2023-2 5 season) 2024 01/15/2021, 12/18/2020 INFLUENZA VACCINE (#1) 2024 04/30/2020 OB-ONE HOUR GLUCOSE 06/06/2024 OB-TDAP CURRENT 06/13/2024 OB-RHOGAM INJECTION 06/20/2024 DEPRESSION SCREENING 07/31/2024 OB-GROUP B STREP SCREEN 08/08/2024 ZOSTER VACCINE (1 of 2) 01/11/2044 HIB VACCINE Aged Out No longer eligi ble based on patient's age to complete this topic HPV VACCINE Aged Out No longer eligi ble based on patient's age to complete this topic MENINGOCOCCAL (Group B) VACCINE Aged Out No longer eligible b ased on patient's age to complete this topic MENINGOCOCCAL VACCINE Aged Out No stephan live eligible based on patient's age to complete this topic PNEUMOCOCCAL VACCINE Aged Out No long er eligible based on patient's age to complete this topic Respiratory Syncytial Virus (RSV) Vaccine Pt: or over 60 yrs (No Doses Required) Completed Procedures Procedure Name Priority Date/Time Associated Diagnosis Comments SONOGRAM - COMPLETE Routine 09/02/2024 8 :57 AM ADMITTED ATTORNEYS Encounter for ultrasound to assess growth (HCC) 37 weeks gestation of (HCC) Poor growth affecting management of mother in third trimester, single or unspecified fetus (HCC) SONOGRAM - COMPLETE Routine 08/12/2024 8 :30 AM ADMITTED ATTORNEYS Encounter for ultrasound to assess growth (HCC) Encounter for anatomic survey (HCC) 36 weeks gestation of (HCC) from Last 3 Months Results * SONOGRAM - COMPLETE (09/02/2024 8:57 AM ADMITTED ATTORNEYS) Only the most recent of2 resultswithin the time period is included. Linked Results Indication ======== FGR on outside ultrasound (9th%) Gestational diabetes, a1 Incomplete anatomy History ====== OB History 2. Para 1 T1 1. live 2022. Gest. age 39 w + 0 d. Sex of child: male. Details: delivery, A1GDM Lab Tests Test Date Result NIPT Low risk, Female Maternal Assessment Physical Exam Height 157 cm, 5 ft 2 in. Weight 59 kg, 131 lb. Initial weight 47 kg, 103 lb. BMI 23.96 kg/m . Initial BMI 18.84 kg/m . Weight gain 13 kg, 28 lb Method ====== Transabdominal ultrasound. View: Sufficient ========= Donnelly . Number of fetuses: 1 Dating ====== Date Details Gest. age SEN Stated SEN 38 w + 4 d 09/12/2024 U/S 09/02/2024 based upon AC, BPD, Femur, HC 37 w + 1 d 09/22/2024 Assigned dating based on stated SEN, selected on 08/12/2024 38 w + 4 d 09/12/2024 General Evaluation Cardiac activity present. FHR 150 bpm. Presentation: cephalic Placenta: Placental site: anterior Umbilical cord: Cord vessels: 3 vessel cord. Insertion site: normal insertion Amniotic fluid: Amount of AF: normal. MVP 5.7 cm. AMY 14.2 cm. Q1 5.7 cm, Q2 2.1 cm, Q3 4.3 cm, Q4 2.2 cm Biometry BPD 92.3 mm 37w 3d 49% Hadlock HC 330.7 mm 37w 5d 16% Hadlock AC 333.7 mm 37w 2d 33% Hadlock Femur 70.8 mm 36w 2d 8% Hadlock Humerus 59.1 mm 34w 2d 2% Joanne HC / AC 0.99 Weight Calculation: EFW 3,119 g 30% Hadlock EFW (lb,oz) 6 lb 14 oz EFW by Hadlock ([id number]) appropriate Growth Overview Exam date GA BPD (mm) HC (mm) AC (mm) FL (mm) HL (mm) EFW (g) 08/12/2024 35w 4d 87.2 45% 315.2 15% 298.1 13% 63.6 2% 55.9 6% 2284 11% 09/02/2024 38w 4d 92.3 49% 330.7 16% 333.7 33% 70.8 8% 59.1 2% 3119 30% Anatomy The following structures appear normal: Abdomen Stomach. Kidneys. Bladder. The following structures could not be adequately visualized: Head / Neck Lateral ventricles. Choroid plexus. Midline falx. Cavum septi pellucidi. Cerebellum. Cisterna magna. Heart / Thorax 4-chamber view. 2-aphhhh-qaquird view. Great vessels. Right lung. Left lung. Abdomen Cord insertion. Genitals. Spine Cervical spine. Thoracic spine. Lumbar spine. Sacral spine. Extremities / Skeleton Hands. Feet. The following structures were documented previously: Head / Neck Cranium. Thalami. Nuchal fold. Face Lips. Profile. Nose. Nasal bone. Orbits. Heart / Thorax RVOT view. LVOT view. 3-vessel view. Situs. Aortic arch view. Bicaval view. Ductal arch view. Diaphragm. Abdomen Bowel. Extremities / Skeleton Arms. Legs. Impression ========= Single, live, intrauterine at 38w 4d size is appropriate Amniotic fluid volume: normal No major malformations were seen within the limits of ultrasound however evaluation of the anatomy is limited due to the late gestational age. Follow-up ======== Follow up as clinically indicated Coding ====== Procedures 06015: US Preg Uterus Follow Up [employer] PACS Anatomical Region Laterality Modality Other 09/02/2024 8:57 AM ADMITTED ATTORNEYS R Hernan Ward MD [facility] ORDERABLES from Last 3 Months Yanique Mccarthy Personal/Famil y Self 1995
--- OUTSIDE RECORDS SUMMARY | 2024-09-11 20:24 | XMS_ITS | Referral Summary ---
Author Organization [facility] Address [address] [place] [address] Care Team Providers Care Brand Recorder Name Role Phone Unavailable Primary Care Provider Unavailabl e Source Comments [facility],non-owned Affiliates and Associated Physician Practices is amultiple site organization consisting of ambulatory clinics and hospital sitesin [place], [place], [place] and [place]. This disclosure is being madepursuant to the Care Everywhere program and may not contain all information available regarding this patient. Last updated 18.[facility] Encounters Date Type Department Care Team Description 09/02/2024 8:45 AM MEDIA TECHNICIAN - 09/02/2024 11:59 PM MEDIA TECHNICIAN Hospital Encounter [facility] [address] [place] [id number] Barbara Vicente MD Discharge Disposition: Home or Self Care 08/12/2024 8:02 AM MEDIA TECHNICIAN - 08/12/2024 11:59 PM [facility] Hospital Encounter [facility] [address] [place] [phone] Barbara Vicente MD Discharge Disposition: Home or [...] Orientation Not on file Plan of Treatment Not on file Procedures Procedure Name Priority Date/Time Associated Diagnosis Comments SONOGRAM - COMPLETE Routine 09/02/2024 8 :57 AM MEDIA TECHNICIAN Encounter for ultrasound to assess growth (HCC) 37 weeks gestation of (HCC) Poor growth affecting management of mother in third trimester, single or unspecified fetus (HCC) SONOGRAM - COMPLETE Routine 08/12/2024 8 :30 AM MEDIA TECHNICIAN Encounter for ultrasound to assess growth (HCC) Encounter for anatomic survey (HCC) 36 weeks gestation of (HCC) from Last 3 Months Results * SONOGRAM - COMPLETE (09/02/2024 8:57 AM MEDIA TECHNICIAN) Only the most recent of2 resultswithin the [...] 6 lb 14 oz EFW by Hadlock ([id number]) appropriate Growth Overview Exam date GA BPD [...] Cisterna magna. Heart / Thorax 4-chamber view. 2-ecswqm-kukqdla view. Great vessels. Right lung. Left lung. [...] up as clinically indicated Coding ====== Procedures 19942: [facility] Laterality Modality Other 09/02/2024 8:57 AM MEDIA TECHNICIAN R Hernan Ward MD [facility] ORDERABLES from Last 3 Months Yanique Mccarthy Personal/Famil y Self 1995
--- OUTSIDE RECORDS SUMMARY | 2024-09-11 20:24 | XMS_ITS | Clinical Summary ---
Author Organization [address] Address [address] [place] [id number] Care Team Providers Care Management Aide Name Role Phone LAVINIA Mock Jr., Mahesh Arora Primary Care Provide r Fernanda Rojas MD Unavailable [phone] Allergies No known active allergies Medications etonogestreL-ethin yl estradioL (NUVARING, ELURYNG) 0.12-0.015 mg/24 hr vaginal ring 03/07/2021 Act edie Active Problems No known active problems Immunizations Name Administration Dates Next Due Influenza, Unspecified 04/30/2020 Pfizer SARS-CoV-2 Monovalent Vaccination (12+ Yrs) PURPLE 01/15/2021,12/18/2020 Family History Medical History Relation Name Comments Hyperlipidemia Father Colon cancer Maternal Grandmother Irritable bowel syndrome Maternal Grandmother Hypertension Mother Prostate cancer Paternal Grandfather Cancer Paternal Grandmother skin ca ncer Irritable bowel syndrome Paternal Grandmother Relation Name Status Comments Father Alive Maternal Grandfather Maternal Grandmother Mother Alive Paternal Grandfather Paternal Grandmother Social History Tobacco Use Types Packs/Day Years [...] on file Legal Sex Female 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 Gender Identity Not on file Sexual Orientation Not on file Obstetrics History Last Filed Vital Signs Vital Sign Reading [...] 04/01/2021 9:59 AM CDT Plan of Treatment Health Maintenance Due Date Last Done Comments Hepatitis C Screening 1994 DTaP/Tdap/Td Vaccine (1 - Tdap) 2005 Varicella Vaccines (1 of 2 - 13+ 2-dose series) 2007 Hepatitis B Screening 01/11/2012 Regular Well Visit/Exam 18-64 01/11/2012 Cervical Cancer Screening 03/22/2020 03/22/2019 Depression Screening 04/01/2022 04/01/2021, 03/25/2021 Covid-19 Vaccine (3 - 2023-2 5 season) 2024 01/15/2021, 12/18/2020 Influenza Vaccine (#1) 2024 04/30/2020 HPV Vaccines Aged Out No longer eligi ble based on patient's age to complete this topic Pneumococcal vaccine <65 Aged Out No longer eligible based on patient's age to complete this topic Procedures Procedure Name Priority Date/Time Associated Diagnosis Comments PAP SMEAR Routine 03/22/2019 from Last 3 Months or Most Recently Relevant to Health Maintenance Results * HM PAP SMEAR (03/22/2019) SCRIBED Pap test normal us Historical Provider HEALTH MAINTENANCE Final Result from Last 3 Months or Most Recently Relevant to Health Maintenance Insurance [employer] OOS [employer] Care Teams Management Aide Relationship Specialty Start Date End Date Mahesh Mock Jr., PA PCP - General Family Medicine 03/22/21 Fernanda Rojas MD [facility] [address] [place] [id number] Consulting Physician Family Medicine 03/22/21
--- OUTSIDE RECORDS SUMMARY | 2024-09-11 20:24 | XMS_ITS | Patient Health Summary ---
Author Organization [facility] Address [address] [place] [address] Care Team Providers Care Dye Feeder Name Role Phone Unavailable Primary Care Provider Unavailabl e Note from [facility] [place],non-owned Affiliates and Associated Physician Practices is amultiple site organization consisting of ambulatory clinics and hospital sitesin [place], [place], [place] and [place]. This disclosure is being madepursuant to the Care Everywhere program and may not contain all information available regarding this patient. Last updated 18.[facility] Social History Tobacco Use Types Packs/Day Years Used Date Smoking Tobacco: Never Assessed Estimated Date of Delivery Comme nts Yes 09/12/2024 Based on Patient Reported Sex and Gender Information Value Date Recorded Sex Assigned at Not on file Gender Identity Not on file Sexual Orientation Not on file Procedures * SONOGRAM - COMPLETE(Performed 09/02/2024) Performed for Encounter for ultrasound to assess growth (HCC), 37 weeks gestation of (HCC), Poor growth affecting management of mother in third trimester, single or unspecified fetus (HCC) * SONOGRAM - COMPLETE(Performed 08/12/2024) Performed for Encounter for ultrasound to assess growth (HCC), Encounter for anatomic survey (HCC), 36 weeks gestation of (HCC) Results * SONOGRAM - COMPLETE (09/02/2024 8:57 AM PHARMACY OPERATIONS SPECIALIST) Only the most recent of2 resultswithin the [...] 6 lb 14 oz EFW by Hadlock ([id number]) appropriate Growth Overview Exam date GA BPD [...] Cisterna magna. Heart / Thorax 4-chamber view. 9-pehyhc-okijomb view. Great vessels. Right lung. Left lung. [...] up as clinically indicated Coding ====== Procedures [id number]: US Preg Uterus Follow Up [email or web address] PACS Anatomical Region Laterality Modality Other 09/02/2024 8:57 AM PHARMACY OPERATIONS SPECIALIST R Hernan Ward MD [facility] ORDERABLES
--- OUTSIDE RECORDS SUMMARY | 2024-09-11 20:24 | XMS_ITS | Data Portability ---
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 [place] [address] [address] 12/01/2022 11:04:31 12/01/2022 12:56:52 Routine care [id number] Z34.01 [id number] Whit Manzo [facility] [address],[place] [address] 12/15/2022 10:47:17 12/15/2022 14:23:52 Gestational diabetes mellitus class A1 [id number] O24.410 Pt and here for diet teaching. Went over ideal ranges for FBS and pp BS. Went over carb counting and carb ranges for each meal/snack . Gave ideas for foods to eat for meals/snac ks. Discussed drink options and to avoid soda and juice. Pt states she doesn't drink any soda or milk, but drinks a lot of juice. Has already cut back on this. Pt cannot drink plain water and told pt to get flavored water that's sugar free and can use sugar free water flavor enhancers as well. Told pt she can go online to ADA for meal options or to look up low carb meal recipes online for ideas as well. Pt picked up glucometer the other day last night and all fasting levels normal and 3 pp elevated. Pt states she had poptarts for breakfast 2 days and those levels were elevated. Pt to cut this out. Pt also had crispy chicken sandwich from [employer] without 1 bun. Pt aware to cut fried foods out as well. Rest of levels were normal. Told pt to continue checking BS QID and adjusting diet to follow low carb diet to try to keep BS within normal range and to call with any concerns on sugars between appointmen ts. Went over NST schedule with pt and importance of keeping these appts and checking BS for her and baby's health. Pt & 's questions were answered and pt verbalized understand ing. LUCIA blum [id number] Leonie Quinteros MD [facility] [address] [address] 12/16/2022 14:15:37 12/16/2022 14:57:28 Routine care [id number] Z34.02 Gestationa l diabetes mellitus class A1 [id number] O24.410 [id number] [facility] [address],[place] [address] 12/29/2022 14:47:08 12/29/2022 15:51:09 Gestational diabetes mellitus [id number] O24.419 [id number] Edie Saenz [place] [address],[facility] [place] [address] 12/29/2022 14:47:30 12/29/2022 16:23:47 Gestational diabetes mellitus class A1 08018904 O24.410 Z3A.32 Pt and here for diet teaching. Went over ideal ranges for FBS and pp BS. Went over carb counting and carb ranges for each meal/snack . Gave ideas for foods to eat for meals/snac ks. Discussed drink options and to avoid soda and juice. Pt states she doesn't drink any soda or milk, but drinks a lot of juice. Has already cut back on this. Pt cannot drink plain water and told pt to get flavored water that's sugar free and can use sugar free water flavor enhancers as well. Told pt she can go online to ADA for meal options or to look up low carb meal recipes online for ideas as well. Pt picked up glucometer the other day last night and all fasting levels normal and 3 pp elevated. Pt states she had poptarts for breakfast 2 days and those levels were elevated. Pt to cut this out. Pt also had crispy chicken sandwich from [employer] without 1 bun. Pt aware to cut fried foods out as well. Rest of levels were normal. Told pt to continue checking BS QID and adjusting diet to follow low carb diet to try to keep BS within normal range and to call with any concerns on sugars between appointmen ts. Went over NST schedule with pt and importance of keeping these appts and checking BS for her and baby's health. Pt & 's questions were answered and pt verbalized understand ing. LUCIA blum [id number] Dominick Ward MD [place] [address],[place] [address] 12/29/2022 14:47:58 12/29/2022 17:29:59 Routine care [id number] Z34.01 [id number] [facility] [address],[place] [address] 01/05/2023 10:48:29 01/05/2023 12:36:30 Gestational diabetes mellitus 13145368 O24.419 [id number] Mary Nelson [place] [address],[place] [address] 1 01/05/2023 10:48:55 01/05/2023 13:45:43 Gestational diabetes mellitus class A1 [id number] O24.410 Z3A.33 Pt and here for diet teaching. Went over ideal ranges for FBS and pp BS. Went over carb counting and carb ranges for each meal/snack . Gave ideas for foods to eat for meals/snac ks. Discussed drink options and to avoid soda and juice. Pt states she doesn't drink any soda or milk, but drinks a lot of juice. Has already cut back on this. Pt cannot drink plain water and told pt to get flavored water that's sugar free and can use sugar free water flavor enhancers as well. Told pt she can go online to ADA for meal options or to look up low carb meal recipes online for ideas as well. Pt picked up glucometer the other day last night and all fasting levels normal and 3 pp elevated. Pt states she had poptarts for breakfast 2 days and those levels were elevated. Pt to cut this out. Pt also had crispy chicken sandwich from [employer] without 1 bun. Pt aware to cut fried foods out as well. Rest of levels were normal. Told pt to continue checking BS QID and adjusting diet to follow low carb diet to try to keep BS within normal range and to call with any concerns on sugars between appointmen ts. Went over NST schedule with pt and importance of keeping these appts and checking BS for her and baby's health. Pt & 's questions were answered and pt verbalized understand ing. kulwant, [place] [id number] Carlotta Astorga CNM [facility] [address],[place] [address] 01/05/2023 10:49:13 01/05/2023 13:27:18 Routine care [id number] Z34.93 [id number] [facility] [address],[place] [address] 01/12/2023 09:55:20 01/12/2023 12:43:27 Gestational diabetes mellitus 92266459 O24.419 [id number] Arlene Tobin [facility] [address],[place] [address] 01/12/2023 09:55:51 01/12/2023 10:47:14 Gestational diabetes mellitus complicating [id number] 9106 O24.410 Z3A.34 [id number] Dominick Ward MD [facility] [address],[place] [address] 01/12/2023 09:56:20 01/12/2023 12:01:25 Routine care [id number] Z34.01 [id number] Nia Soler [facility] [address],[place] [address] 01/19/2023 09:51:57 01/19/2023 11:56:35 Gestational diabetes mellitus [id number] O24.419 [id number] Edie Saenz [facility] [address],[place] [address] 1 01/19/2023 10:22:15 01/19/2023 10:59:17 Gestational diabetes mellitus class A1 43606835 O24.410 Z3A.35 Pt and here for diet teaching. Went over ideal ranges for FBS and pp BS. Went over carb counting and carb ranges for each meal/snack . Gave ideas for foods to eat for meals/snac ks. Discussed drink options and to avoid soda and juice. Pt states she doesn't drink any soda or milk, but drinks a lot of juice. Has already cut back on this. Pt cannot drink plain water and told pt to get flavored water that's sugar free and can use sugar free water flavor enhancers as well. Told pt she can go online to ADA for meal options or to look up low carb meal recipes online for ideas as well. Pt picked up glucometer the other day last night and all fasting levels normal and 3 pp elevated. Pt states she had poptarts for breakfast 2 days and those levels were elevated. Pt to cut this out. Pt also had crispy chicken sandwich from [employer] without 1 bun. Pt aware to cut fried foods out as well. Rest of levels were normal. Told pt to continue checking BS QID and adjusting diet to follow low carb diet to try to keep BS within normal range and to call with any concerns on sugars between appointmen ts. Went over NST schedule with pt and importance of keeping these appts and checking BS for her and baby's health. Pt & 's questions were answered and pt verbalized understand ing. LUCIA blum [id number] Dominick Ward MD [facility] [address],[place] [address] 01/19/2023 10:22:34 01/19/2023 11:52:04 Routine care [id number] Z34.01 [id number] Nia Steinbergse [facility] [address],[place] [address] 01/26/2023 09:50:03 01/26/2023 10:54:52 Gestational diabetes mellitus 33446140 O24.419 [id number] Edie Saenz [facility] [address],[place] [address] 1 01/26/2023 09:50:25 01/26/2023 11:12:54 Gestational diabetes mellitus class A1 23645065 O24.410 O36.5930 Z3A.36 Pt and here for diet teaching. Went over ideal ranges for FBS and pp BS. Went over carb counting and carb ranges for each meal/snack . Gave ideas for foods to eat for meals/snac ks. Discussed drink options and to avoid soda and juice. Pt states she doesn't drink any soda or milk, but drinks a lot of juice. Has already cut back on this. Pt cannot drink plain water and told pt to get flavored water that's sugar free and can use sugar free water flavor enhancers as well. Told pt she can go online to ADA for meal options or to look up low carb meal recipes online for ideas as well. Pt picked up glucometer the other day last night and all fasting levels normal and 3 pp elevated. Pt states she had poptarts for breakfast 2 days and those levels were elevated. Pt to cut this out. Pt also had crispy chicken sandwich from [employer] without 1 bun. Pt aware to cut fried foods out as well. Rest of levels were normal. Told pt to continue checking BS QID and adjusting diet to follow low carb diet to try to keep BS within normal range and to call with any concerns on sugars between appointmen ts. Went over NST schedule with pt and importance of keeping these appts and checking BS for her and baby's health. Pt & 's questions were answered and pt verbalized understand ing. LUCIA blum [id number] Dominick Ward MD [facility] [address],[place] [address] 01/26/2023 09:51:00 01/26/2023 11:57:23 Routine care [id number] Z34.01 [id number] [facility] [address],[place] [address] 02/02/2023 09:54:12 02/02/2023 10:30:28 Gestational diabetes mellitus 87070130 O24.419 [id number] Mary Nelson [facility] [address],[place] [address] 02/02/2023 09:54:40 02/02/2023 11:44:28 Gestational diabetes mellitus class A1 78870814 O24.410 Z3A.37 [id number] Dominick Ward MD [place] [address],[place] [address] 02/02/2023 09:55:06 02/02/2023 11:52:27 Rafa breech presentation [id number] O32.1XX9 [id number] [facility] [address] [place] [address] 02/09/2023 09:48:00 02/09/2023 10:52:32 Gestational diabetes mellitus 01091816 O24.419 [id number] Mary Nelson [place] [address] [place] [address] 02/09/2023 09:48:23 02/09/2023 12:05:42 Gestational diabetes mellitus class A1 [id number] O24.410 Z3A.38 [id number] Dominick Ward MD [place] [address] [place] [address] 02/09/2023 09:48:43 02/09/2023 12:17:44 Routine care [id number] Z34.01 [id number] Victoria Melendez [facility] [address],[place] [address] 02/17/2023 09:59:03 02/17/2023 10:02:53 [id number] Dominick Ward MD [facility] [address],[place] [address] 02/23/2023 14:11:24 02/23/2023 14:58:00 Postoperative care [id number] Z48.89 patient is a 28-year-ol d 1 para 1 is 1 week postop from a delivery. She has no complaints her incision is clean dry and intact. Her baby is well. Her mood is good. She will follow-up in 3 weeks [id number] Marlyn Delgado [facility] [address],[place] [address] 02/28/2023 11:40:18 02/28/2023 13:38:22 management [id number] Z39.1 [id number] Dominick Ward MD [place] [address],[place] [address] 03/16/2023 11:37:10 03/16/2023 12:26:19 Mixed anxiety and depressive disorder 921131589 F41.8 state 1496297 1 Z39.2 This patient is a 28-year-ol d female who presents for follow-up. She has not had intercours e. She has some bleeding still, it is very light. She would like to have the progestero ne only pill for contracept ion. She is breastfeed ing. Her baby is doing well. She is having trouble with her mood. She failed the screening for anxiety depression . She has experience symptoms of anxiety and depression would like to be treated. She has family history. We talked about treatment options and agreed to Zoloft 50 mg. She will start that and she will follow-up in 1 month. [id number] Dominick Ward MD [facility] [address],[place] [address] 04/17/2023 09:21:20 04/17/2023 10:13:00 Anxiety 19530531 F41.9 This patient is a 28-year-ol d female who presents for follow-up on anxiety. She is doing well. Medication has been effective. She has responded to well. She denies any untoward side effects. She will follow-up in 3 months. Will continue the current dose [id number] Arlene Tobin [facility] [address],[place] [address] 08/03/2023 14:49:53 08/03/2023 15:38:52 Dyspareunia 27352352 N94.10 tender uterus on pelvic exam [id number] Dominick Ward MD [facility] [address],[place] [address] 08/10/2023 15:12:16 08/10/2023 16:14:25 Dyspareunia [id number] N94.10 28-year-ol d female with dyspareuni a. She had an ultrasound . Ultrasound appears normal. Her symptoms are getting better. We talked about persistent dyspareuni a and how we might evaluate. We talked about some diagnostic laparoscop ic surgical options. We agreed to observe her problem. If it persists we will talk again. we discussed ultrasound results. She is taking progestero ne only contracept ion at this time. [id number] Edie Saenz [facility] [address],[place] [address] 01/25/2024 11:23:33 01/25/2024 12:02:53 screening 182445004 Z36.87 Z3A.01 [id number] Dominick Ward MD [facility] [address],[place] [address] 01/25/2024 11:24:01 01/25/2024 12:58:22 Amenorrhea 72090032 N91.2 this patient is an 29-year-ol d female with amenorrhea . She has a positive test and ultrasound shows a viable intrauteri ne . We talked about early care. Talked about precaution s in that included comments about diet, exercise, over-the-c ounter medication s.. We talked about vaccines. Talked about genetic screening. Talked about her ultrasound today and your ultrasound at 12 weeks. She will begin routine care. Spent more than 20 minutes total on the patient's care. [id number] Arlene Tobin [facility] [address],[place] [address] 02/29/2024 10:39:47 02/29/2024 11:38:03 screening [id number] Z36.82 Z3A.12 [id number] Dominick Ward MD [facility] [address],[place] [address] 02/29/2024 10:40:10 02/29/2024 12:59:35 Routine care 187553803 Z34.01 [id number] Dominick Ward MD [facility] [address],[place] [address] 03/28/2024 10:36:12 03/28/2024 11:32:35 Routine care 688617606 Z34.01 [id number] Edie Saenz [facility] [address],[place] [address] 04/25/2024 14:18:13 04/25/2024 15:01:49 screening for malformation 912266483 Z36.3 Z3A.20 [id number] Dominick Ward MD [facility] [address],[place] [address] 04/25/2024 14:37:29 04/25/2024 15:55:02 Routine care 903041338 Z34.01 [id number] Dominick Ward MD [facility] [address],[place] [address] 05/23/2024 14:50:33 05/23/2024 15:34:30 Routine care 517707195 Z34.01 [id number] Dominick Ward MD [facility] [address],[place] [address] 06/20/2024 10:41:45 06/20/2024 11:36:07 Routine care 151671526 Z34.01 [id number] [facility] [address],[place] [address] 07/05/2024 15:42:11 07/05/2024 16:22:15 Gestation period, 30 weeks 60486670 Z3A.30 [id number] [facility] [address],[place] [address] 07/18/2024 13:44:07 07/18/2024 14:47:46 Small for gestational age fetus 341618284 O36.5999 O43.113 Z3A.32 [id number] Dominick Ward MD [facility] [address],[place] [address] 07/18/2024 13:44:25 07/18/2024 15:43:41 Gestational diabetes mellitus 54032614 O24.419 [id number] Elizabeth Roth [facility] [address],[place] [address] 07/25/2024 15:44:43 07/25/2024 16:45:18 Gestational diabetes mellitus 75818054 O24.419 [id number] Dominick Ward MD [place] [address],[place] [address] 07/25/2024 15:45:05 07/25/2024 17:15:17 Routine care 149462414 Z34.01 [id number] Victoria Melendez [facility] [address],[place] [address] 08/02/2024 13:56:40 08/06/2024 03:11:39 growth restriction 58572756 O36.5999 [id number] Dominick Ward MD [place] [address],[place] [address] 08/02/2024 13:57:11 08/02/2024 15:20:10 Routine care 580281913 Z34.01 [id number] Edie Saenz [facility] [address],[place] [address] 08/06/2024 16:15:11 08/06/2024 16:55:25 Small for gestational age fetus 714900720 O36.5930 Z3A.34 [id number] Elizabeth Roth [facility] [address],[place] [address] 08/07/2024 15:27:46 08/07/2024 17:27:24 Gestational diabetes mellitus 00068096 O24.419 [id number] Dominick Ward MD [facility] [address],[place] [address] 08/07/2024 15:28:34 08/07/2024 17:06:37 Routine care 413542189 Z34.01 [id number] [facility] [address],[place] [address] 08/15/2024 15:30:17 08/15/2024 17:20:32 Gestational diabetes mellitus 41801607 O24.419 [id number] Dominick Ward MD [facility] [address],[place] [address] 08/15/2024 15:30:38 08/15/2024 17:18:05 Routine care 413956226 Z34.01 [id number] [facility] [address],[place] [address] 08/22/2024 16:21:07 08/22/2024 17:02:47 Gestational diabetes mellitus 77414696 O24.419 [id number] Dominick Ward MD [facility] [address],[place] [address] 08/22/2024 16:21:26 08/23/2024 07:17:32 Routine care 152861727 Z34.01 [id number] Dominick Ward MD [facility] [address],[place] [address] 08/29/2024 14:01:44 08/29/2024 15:36:43 Routine care 899876698 Z34.01 [id number] Victoria Melendez [facility] [address] [place] [address] 08/29/2024 14:03:40 08/30/2024 10:41:43 Gestational diabetes mellitus 78577133 O24.419 [id number] Arlene Tobin [facility] [address],[place] [address] 09/05/2024 14:02:21 09/05/2024 14:33:29 Small for gestational age fetus 514324736 O36.5930 O24.410 Z3A.39 [id number] Victoria Melendez [facility] [address],[place] [address] 09/05/2024 14:02:36 09/05/2024 17:18:28 Gestational diabetes mellitus 55276384 O24.419 [id number] Dominick Ward MD [facility] [address],[place] [address] 09/05/2024 14:22:25 09/05/2024 15:28:06 Routine care 658002094 Z34.01 Health Concerns Section Related Observation LastModified by Organization Detai ls LastModified Time None Recorded Concern Status LastModified by Organization Details LastModified Time None Recorded Advance Directives Directive N: Payers Encounter Date Sequence Insurance Name Policy Number Policy Frey Covered Member ID Frey Member ID Guarantor Name 08/29/2024 1 [place] [id number] Yanique Micnheimer [id number] Yanique Micnheimer 08/29/2024 1 [place] [id number] Yanique Micnheimer [id number] Yanique Micnheimer 09/05/2024 1 [place] [id number] Yanique Micnheimer [id number] Yanique Micnheimer 09/05/2024 1 [place] [id number] Yanique Micnheimer [id number] Yanique Micnheimer 09/05/2024 1 [place] [id number] Yanique Micnheimer [id number] Yanique Micnheimer OBGyn Episode Ob Episode Information Episode Created Date Number of Fetuses Patient Bloodtype Patient rh Status Prepregnancy Weight lbs Domestic Partner Domestic Partner Phone Father Name Industrial Diamond Polisher Status 08/11/19 23 1 O Positive 107 CLOSED Fetus Data First Name Last Name Admitted to NICU Weight (g) Sex Living Outcome Pediatric Complications Fetus ID Race Codes Race Delivery Type Gab 2806.60 05 M true Full Term [id number] Primary Problems Problem Notes PNL WNL/NIPT NL XY Problem Name Start Date End Date Resolution Snomed Code Not e Gestational diabetes mellitus 37792761 BS QID , antena melody testing 32wks Incomplete breech presentation 81769323 footling breech Reno Calculation Initial Reno Date Initial Exam Date Initial Exam Provider Initial Ultrasound Date Last Menstrual Period Date Ultra Sound Weeks Gestation 02/23/2023 08/11/2022 07/14/2022 05/19/2022 8 Eighteen To Twenty Week Reno Update Ultra Sound Date Fundal Height At Umbil Quickening Date Ultra Sound Latest Weeks Gestation Final Reno Confirmed By Final Reno Confirmed Date Final Reno Date Ultra Sound Latest Days Gestation 0 [email or web address] 08/11/2022 02/24/20 23 0 Pre- Flowsheet Flowsheet Date 08/11/2022 Womack Score Blood Edema Fundus Height Fundus Units Glucose Ketones Leukocytes Nitrite Labor Signs Protein Cervic Dilation Cervic Effacement Cervic Station 12 Type Weight in lbs Pre/Post Dialysis Refused Weight 106.98508998830 BP Diastolic BP Location Tested BP Systolic BP Type 71 R arm 105 sitting Fetus Heart Rate Present A 145 Fetus Movement Comments this patient is a 19-year-ol d 1 at 12 weeks gestation who presents for initial care. She is vaccinated for COVID received the rest of the vaccine recommendations. We talked about care in detail. She has no significant medical, surgical, obstetric history. It is all unremarkable. She has no complaints and no problems. To begin routine care. She did genetic testing. She had labs drawn. Her ultrasound is normal today with normal nuchal translucency and nasal bone. Flowsheet Date 09/08/2022 Womack Score Blood Edema Fundus Height Fundus Units Glucose Ketones Leukocytes Nitrite Labor Signs Protein Cervic Dilation Cervic Effacement Cervic Station neg none none trace Type Weight in lbs Pre/Post Dialysis Refused Weight 108.666881226048 BP Diastolic BP Location Tested BP Systolic BP Type 64 101 Fetus Heart Rate Present A 148 Fetus Movement A Yes Comments Doing well. Occasional nause a and vomiting but feels it is due to sinus drainage which is normal for her. Having boy Gab . Offered AFP. Will think about it and let us know by next visit. She is aware of timing of test. Flowsheet Date 10/03/2022 Womack Score Blood Edema Fundus Height Fundus Units Glucose Ketones Leukocytes Nitrite Labor Signs Protein Cervic Dilation Cervic Effacement Cervic Station Type Weight in lbs Pre/Post Dialysis Refused BP Diastolic BP Location Tested BP Systolic BP Type Fetus Heart Rate Present Fetus Movement Comments Flowsheet Date 10/03/2022 Womack Score Blood Edema Fundus Height Fundus Units Glucose Ketones Leukocytes Nitrite Labor Signs Protein Cervic Dilation Cervic Effacement Cervic Station neg trace none trace Type Weight in lbs Pre/Post Dialysis Refused Weight 109.593799288935 BP Diastolic BP Location Tested BP Systolic BP Type 67 103 Fetus Heart Rate Present A 145 Fetus Movement A Yes Comments Doing very well, no concerns . US today anatomy complete and wnl. Flowsheet Date 10/31/2022 [place] Score Blood Edema Fundus Height Fundus Units Glucose Ketones Leukocytes Nitrite Labor Signs Protein Cervic Dilation Cervic Effacement Cervic Station neg none 22 none trace Type Weight in lbs Pre/Post Dialysis Refused Weight 116.41246328422 BP Diastolic BP Location Tested BP Systolic BP Type 70 108 Fetus Heart Rate Present A 160 Fetus Movement A Yes Comments Doing well, no concerns exce pt GERD> Discussed OTCs. GCT next visit, discuss TDap next visit. Flowsheet Date 12/01/2022 [place] Score Blood Edema Fundus Height Fundus Units Glucose Ketones Leukocytes Nitrite Labor Signs Protein Cervic Dilation Cervic Effacement Cervic Station 28 Type Weight in lbs Pre/Post Dialysis Refused Weight 122.191154464925 BP Diastolic BP Location Tested BP Systolic BP Type 70 R arm 111 sitting Fetus Heart Rate Present A 145 Fetus Movement A Yes Comments No complaints, no problems, routine care. GDM testing today Flowsheet Date 12/15/2022 [place] Score Blood Edema Fundus Height Fundus Units Glucose Ketones Leukocytes Nitrite Labor Signs Protein Cervic Dilation Cervic Effacement Cervic Station Type Weight in lbs Pre/Post Dialysis Refused BP Diastolic BP Location Tested BP Systolic BP Type Fetus Heart Rate Present Fetus Movement Comments Flowsheet Date 12/16/2022 [place] Score Blood Edema Fundus Height Fundus Units Glucose Ketones Leukocytes Nitrite Labor Signs Protein Cervic Dilation Cervic Effacement Cervic Station neg trace 30 none trace Type Weight in lbs Pre/Post Dialysis Refused Weight 122.325156480003 BP Diastolic BP Location Tested BP Systolic BP Type 74 133 Fetus Heart Rate Present A 155 Fetus Movement A Yes Comments Just did GDM diet teaching y . NSTs scheduled. Doing well. Flowsheet Date 12/29/2022 [place] Score Blood Edema Fundus Height Fundus Units Glucose Ketones Leukocytes Nitrite Labor Signs Protein Cervic Dilation Cervic Effacement Cervic Station Type Weight in lbs Pre/Post Dialysis Refused BP Diastolic BP Location Tested BP Systolic BP Type Fetus Heart Rate Present Fetus Movement Comments Flowsheet Date 12/29/2022 [place] Score Blood Edema Fundus Height Fundus Units Glucose Ketones Leukocytes Nitrite Labor Signs Protein Cervic Dilation Cervic Effacement Cervic Station Type Weight in lbs Pre/Post Dialysis Refused BP Diastolic BP Location Tested BP Systolic BP Type Fetus Heart Rate Present Fetus Movement Comments Flowsheet Date 12/29/2022 [place] Score Blood Edema Fundus Height Fundus Units Glucose Ketones Leukocytes Nitrite Labor Signs Protein Cervic Dilation Cervic Effacement Cervic Station 32 none trace Type Weight in lbs Pre/Post Dialysis Refused Weight 123.587828600646 BP Diastolic BP Location Tested BP Systolic BP Type 73 R arm 118 sitting Fetus Heart Rate Present A 145 Fetus Movement A Yes Comments normal growth ultrasound wit h some smaller her extremities and abdominal circumference. To repeat in 4 weeks. Good blood sugar control Flowsheet Date 01/05/2023 [facility] Score Blood Edema Fundus Height Fundus Units Glucose Ketones Leukocytes Nitrite Labor Signs Protein Cervic Dilation Cervic Effacement Cervic Station Type Weight in lbs Pre/Post Dialysis Refused BP Diastolic BP Location Tested BP Systolic BP Type Fetus Heart Rate Present Fetus Movement Comments Flowsheet Date 01/05/2023 [place] Score Blood Edema Fundus Height Fundus Units Glucose Ketones Leukocytes Nitrite Labor Signs Protein Cervic Dilation Cervic Effacement Cervic Station Type Weight in lbs Pre/Post Dialysis Refused BP Diastolic BP Location Tested BP Systolic BP Type Fetus Heart Rate Present Fetus Movement Comments Flowsheet Date 01/05/2023 [place] Score Blood Edema Fundus Height Fundus Units Glucose Ketones Leukocytes Nitrite Labor Signs Protein Cervic Dilation Cervic Effacement Cervic Station Type Weight in lbs Pre/Post Dialysis Refused Weight 125.611490451536 BP Diastolic BP Location Tested BP Systolic BP Type 66 R arm 102 sitting Fetus Heart Rate Present Fetus Movement A Yes Comments rafa breech, ok for chiropr actor, GDM, reviewed BS, increase protein to feel longoria in between meals and snacks. has preadmission, ok for chiropractor, precautions reviewed f/u next week Flowsheet Date 01/12/2023 [facility] Score Blood Edema Fundus Height Fundus Units Glucose Ketones Leukocytes Nitrite Labor Signs Protein Cervic Dilation Cervic Effacement Cervic Station Type Weight in lbs Pre/Post Dialysis Refused BP Diastolic BP Location Tested BP Systolic BP Type Fetus Heart Rate Present Fetus Movement Comments Flowsheet Date 01/12/2023 [place] Score Blood Edema Fundus Height Fundus Units Glucose Ketones Leukocytes Nitrite Labor Signs Protein Cervic Dilation Cervic Effacement Cervic Station Type Weight in lbs Pre/Post Dialysis Refused BP Diastolic BP Location Tested BP Systolic BP Type Fetus Heart Rate Present Fetus Movement Comments Flowsheet Date 01/12/2023 [place] Score Blood Edema Fundus Height Fundus Units Glucose Ketones Leukocytes Nitrite Labor Signs Protein Cervic Dilation Cervic Effacement Cervic Station 34 none trace Type Weight in lbs Pre/Post Dialysis Refused Weight 123.126356402505 BP Diastolic BP Location Tested BP Systolic BP Type 64 R arm 100 sitting Fetus Heart Rate Present A 145 Fetus Movement Comments No complaints, no problems, reassuring testing, good blood sugar control. Flowsheet Date 01/19/2023 [facility] Score Blood Edema Fundus Height Fundus Units Glucose Ketones Leukocytes Nitrite Labor Signs Protein Cervic Dilation Cervic Effacement Cervic Station Type Weight in lbs Pre/Post Dialysis Refused BP Diastolic BP Location Tested BP Systolic BP Type Fetus Heart Rate Present Fetus Movement Comments Flowsheet Date 01/19/2023 [place] Score Blood Edema Fundus Height Fundus Units Glucose Ketones Leukocytes Nitrite Labor Signs Protein Cervic Dilation Cervic Effacement Cervic Station Type Weight in lbs Pre/Post Dialysis Refused BP Diastolic BP Location Tested BP Systolic BP Type Fetus Heart Rate Present Fetus Movement Comments Flowsheet Date 01/19/2023 [facility] Score Blood Edema Fundus Height Fundus Units Glucose Ketones Leukocytes Nitrite Labor Signs Protein Cervic Dilation Cervic Effacement Cervic Station none trace Type Weight in lbs Pre/Post Dialysis Refused Weight 125.516655811650 BP Diastolic BP Location Tested BP Systolic BP Type 69 R arm 106 sitting Fetus Heart Rate Present A 154 Fetus Movement A Yes Comments breast concern, patient has large pendulous breasts, she has numbness on the lateral aspect of her left breast. This is most likely a physical stress issue related to the size and growth. They have grown during . Persistent rafa breech, patient understands risk of . Possibility of rather, she is prepared for that Flowsheet Date 01/26/2023 [facility] Score Blood Edema Fundus Height Fundus Units Glucose Ketones Leukocytes Nitrite Labor Signs Protein Cervic Dilation Cervic Effacement Cervic Station Type Weight in lbs Pre/Post Dialysis Refused BP Diastolic BP Location Tested BP Systolic BP Type Fetus Heart Rate Present Fetus Movement Comments Flowsheet Date 01/26/2023 [place] Score Blood Edema Fundus Height Fundus Units Glucose Ketones Leukocytes Nitrite Labor Signs Protein Cervic Dilation Cervic Effacement Cervic Station Type Weight in lbs Pre/Post Dialysis Refused BP Diastolic BP Location Tested BP Systolic BP Type Fetus Heart Rate Present Fetus Movement Comments Flowsheet Date 01/26/2023 [facility] Score Blood Edema Fundus Height Fundus Units Glucose Ketones Leukocytes Nitrite Labor Signs Protein Cervic Dilation Cervic Effacement Cervic Station 36 none trace 0cm Type Weight in lbs Pre/Post Dialysis Refused Weight 126.66082986530 BP Diastolic BP Location Tested BP Systolic BP Type 72 R arm 107 sitting Fetus Heart Rate Present A 145 Fetus Movement Comments footling breech, good growth , normal blood sugar control, baby low in the pelvis. , cervix closed Flowsheet Date 02/02/2023 [facility] Score Blood Edema Fundus Height Fundus Units Glucose Ketones Leukocytes Nitrite Labor Signs Protein Cervic Dilation Cervic Effacement Cervic Station Type Weight in lbs Pre/Post Dialysis Refused BP Diastolic BP Location Tested BP Systolic BP Type Fetus Heart Rate Present Fetus Movement Comments Flowsheet Date 02/02/2023 [place] Score Blood Edema Fundus Height Fundus Units Glucose Ketones Leukocytes Nitrite Labor Signs Protein Cervic Dilation Cervic Effacement Cervic Station Type Weight in lbs Pre/Post Dialysis Refused BP Diastolic BP Location Tested BP Systolic BP Type Fetus Heart Rate Present Fetus Movement Comments Flowsheet Date 02/02/2023 [facility] Score Blood Edema Fundus Height Fundus Units Glucose Ketones Leukocytes Nitrite Labor Signs Protein Cervic Dilation Cervic Effacement Cervic Station none trace Type Weight in lbs Pre/Post Dialysis Refused Weight 126.07246512649 BP Diastolic BP Location Tested BP Systolic BP Type 69 R arm 103 sitting Fetus Heart Rate Present A 145 Fetus Movement Comments scheduling for Jan, normal BPP today, no contractions, no loss of fluid Flowsheet Date 02/09/2023 [facility] Score Blood Edema Fundus Height Fundus Units Glucose Ketones Leukocytes Nitrite Labor Signs Protein Cervic Dilation Cervic Effacement Cervic Station Type Weight in lbs Pre/Post Dialysis Refused BP Diastolic BP Location Tested BP Systolic BP Type Fetus Heart Rate Present Fetus Movement Comments Flowsheet Date 02/09/2023 [facility] Score Blood Edema Fundus Height Fundus Units Glucose Ketones Leukocytes Nitrite Labor Signs Protein Cervic Dilation Cervic Effacement Cervic Station Type Weight in lbs Pre/Post Dialysis Refused BP Diastolic BP Location Tested BP Systolic BP Type Fetus Heart Rate Present Fetus Movement Comments Flowsheet Date 02/09/2023 [facility] Score Blood Edema Fundus Height Fundus Units Glucose Ketones Leukocytes Nitrite Labor Signs Protein Cervic Dilation Cervic Effacement Cervic Station 38 none trace Type Weight in lbs Pre/Post Dialysis Refused Weight 127.967218573320 BP Diastolic BP Location Tested BP Systolic BP Type 68 R arm 104 sitting Fetus Heart Rate Present A 145 Fetus Movement A Yes Comments Induction 1 week, no complai nts, no problems, good blood sugar control. Flowsheet Date 02/16/2023 [facility]ack Score Blood Edema Fundus Height Fundus Units Glucose Ketones Leukocytes Nitrite Labor Signs Protein Cervic Dilation Cervic Effacement Cervic Station Type Weight in lbs Pre/Post Dialysis Refused BP Diastolic BP Location Tested BP Systolic BP Type Fetus Heart Rate Present Fetus Movement Comments Flowsheet Date 02/23/2023 [facility] Score Blood Edema Fundus Height Fundus Units Glucose Ketones Leukocytes Nitrite Labor Signs Protein Cervic Dilation Cervic Effacement Cervic Station Type Weight in lbs Pre/Post Dialysis Refused Weight 114.471243465835 BP Diastolic BP Location Tested BP Systolic BP Type 79 R arm 114 sitting Fetus Heart Rate Present Fetus Movement Comments Menstrual History Last Menstrual Date Menses Monthly On Bcp Conception Prior Menses Frequency Hcg Plus Date Menarche Onset Age 1005/19/2022 Genetic Screening And Infection History Question Response Note Mental Retardation/Autism false Patient's Age Will Be 35 Years Or Older At Estim ated Date of Delivery false Thalassemia (Tunisian, Japanese, Mediterranean, Or Background): MCV < 80 false Neural Tube Defect (Meningomyelocele, Spina Bifi da, Or Anencephaly) false Congenital Heart Defect false Down Syndrome false Navid-Sachs (eg, Mosque, Cajun, Zambian-Juana Diaz) f alse Tyson Disease false Sickle Cell Disease Or Trait () false Hemophilia Or Other Blood Disorders false Muscular Dystrophy false Cystic Fibrosis false Enedina's Chorea false Intellectual Disability/Autism false If Yes, Was Person Tested For Fragile X? false Other Inherited Genetic Or Chromosomal Disorder false Maternal Metabolic Disorder (eg, Type 1 Diabetes , PKU) false Patient Or Baby's Father Had A Child With Defects Not Listed Above false Recurrent Loss, Or A Stillbirth false Medications (including Suppl ements, Vitamins, Herbs, OTC Drugs), Illicit/Recreational Drugs, Alcohol false If Yes, Agent(s) And Strength/Dosage false Any Other Genetic History false Live With Someone With TB Or Exposed To TB false Patient Or Partner Has History Of Genital Herpes false Rash Or Viral Illness Since Last Menstrual Perio d false History Of STD, Gonorrhea, Chlamydia, HPV, Syphi lis false Other Infection History false History of HIV false History of Hepatitis false Prior GBS-infected child false Hemoglobinopathy Or Carrier false Other Structural Defect false Recent Travel History Outside of Country false Delivery Information Delivery Date Delivery Type Labor Anesthesia Weeks Gestation Incision Type Labor Labor Length Hrs Delivered By Post Complications Tubal Sterilization Discharge Date Comments 3 None Regional-Sp inal 39 Low Transvers e false Dominick Ward MD Gdm & Footling Breech Discharge Information Feeding Method Contraceptive Method Maternal HG B and HCT Levels Ob Episode Information Episode Created Date Number of Fetuses Patient Bloodtype Patient rh Status Prepregnancy Weight lbs Domestic Partner Domestic Partner Phone Father Name Industrial Diamond Polisher Status 02/29/20 24 1 O Positive OPEN Fetus Data First Name Last Name Admitted to NICU Weight (g) Sex Living Outcome Pediatric Complications Fetus ID Race Codes Race Delivery Type [id number] Problems Problem Notes Growth at 27th %tile at 20 w eeksfailed 1 hr gtt Problem Name Start Date End Date Resolution Snomed Code Not e Anemia 06/24/2024 331297012 1 tab slo wfe daily Gestational diabetes mellitus 91644763 BS QID , serial growth 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 607786 0 32wk repeat growth u/s growth restriction 59203 007 [facility] 08/12 815AM Level II US & 2 0900 Level II US Resolved 2/ MFM EFW 30% section [id number] wan ts to [place] Calculation Initial [place] Date Initial Exam Date Initial Exam Provider Initial Ultrasound Date Last Menstrual Period Date Ultra Sound Weeks Gestation 09/12/2024 02/29/2024 01/25/2024 11/28/2023 7 Eighteen To Twenty Week [place] Update Ultra Sound Date Fundal Height At Umbil Quickening Date Ultra Sound Latest Weeks Gestation Final [place] Confirmed By Final [place] Confirmed Date Final [place] Date Ultra Sound Latest Days Gestation 04/25/20 24 19 4 Pre-josefina Flowsheet Flowsheet Date 02/29/2024 Womack Score Blood Edema Fundus Height Fundus Units Glucose Ketones Leukocytes Nitrite Labor Signs Protein Cervic Dilation Cervic Effacement Cervic Station Type Weight in lbs Pre/Post Dialysis Refused Weight 98.4983133569732 BP Diastolic BP Location Tested BP Systolic BP Type 69 L arm 108 sitting Fetus Heart Rate Present Fetus Movement A No Comments this patient is a 29-year-ol d multiparous female at 12 weeks' gestation who presents for initial care. She has a history of term vaginal births. Her medical, surgical, obstetric history is unremarkable. She is vaccinated. She was given precautions recommendations for . We talked about vaccines in . Talked about care in detail. She is having genetic testing. She had a normal 12 week ultrasound. To begin routine care. Flowsheet Date 03/28/2024 [facility] Score Blood Edema Fundus Height Fundus Units Glucose Ketones Leukocytes Nitrite Labor Signs Protein Cervic Dilation Cervic Effacement Cervic Station Type Weight in lbs Pre/Post Dialysis Refused 103.816296182098 BP Diastolic BP Location Tested BP Systolic BP Type 66 L arm 104 sitting Fetus Heart Rate Present A 149 Fetus Movement A Yes Comments no complaints, no problems, routine care, no contractions, no vaginal bleeding, no loss of fluid, no cramping Flowsheet Date 04/25/2024 [facility] Score Blood Edema Fundus Height Fundus Units Glucose Ketones Leukocytes Nitrite Labor Signs Protein Cervic Dilation Cervic Effacement Cervic Station Type Weight in lbs Pre/Post Dialysis Refused BP Diastolic BP Location Tested BP Systolic BP Type Fetus Heart Rate Present Fetus Movement Comments Flowsheet Date 04/25/2024 [facility] Score Blood Edema Fundus Height Fundus Units Glucose Ketones Leukocytes Nitrite Labor Signs Protein Cervic Dilation Cervic Effacement Cervic Station Type Weight in lbs Pre/Post Dialysis Refused 107.744153919139 BP Diastolic BP Location Tested BP Systolic BP Type 62 L arm 99 sitting Fetus Heart Rate Present A 144 Fetus Movement A Yes Comments no complaints, no problems, routine care, no contractions, no vaginal bleeding, no loss of fluid, no cramping completed anatomy ultrasound Flowsheet Date 05/23/2024 [facility] Score Blood Edema Fundus Height Fundus Units Glucose Ketones Leukocytes Nitrite Labor Signs Protein Cervic Dilation Cervic Effacement Cervic Station Type Weight in lbs Pre/Post Dialysis Refused 115.522194034012 BP Diastolic BP Location Tested BP Systolic BP Type 69 L arm 105 sitting Fetus Heart Rate Present A 145 Fetus Movement A Yes Comments no complaints, no problems, routine care, no contractions, no vaginal bleeding, no loss of fluid, no cramping Flowsheet Date 06/20/2024 [facility] Score Blood Edema Fundus Height Fundus Units Glucose Ketones Leukocytes Nitrite Labor Signs Protein Cervic Dilation Cervic Effacement Cervic Station Type Weight in lbs Pre/Post Dialysis Refused 120.350998652440 BP Diastolic BP Location Tested BP Systolic BP Type 75 L arm 114 sitting Fetus Heart Rate Present A 133 Fetus Movement A Yes Comments no complaints, no problems, routine care, no contractions, no vaginal bleeding, no loss of fluid, no cramping Flowsheet Date 07/05/2024 [facility] Score Blood Edema Fundus Height Fundus Units Glucose Ketones Leukocytes Nitrite Labor Signs Protein Cervic Dilation Cervic Effacement Cervic Station trace Type Weight in lbs Pre/Post Dialysis Refused 125.968632565584 BP Diastolic BP Location Tested BP Systolic BP Type 69 101 Fetus Heart Rate Present Fetus Movement A Yes Comments Patient is having some swell ing. reviewed bs log wnl, doing well still considering TOLAC, has growth on 07-18, +FM f/u 2 weeks Flowsheet Date 07/18/2024 [facility] Score Blood Edema Fundus Height Fundus Units Glucose Ketones Leukocytes Nitrite Labor Signs Protein Cervic Dilation Cervic Effacement Cervic Station Type Weight in lbs Pre/Post Dialysis Refused BP Diastolic BP Location Tested BP Systolic BP Type Fetus Heart Rate Present Fetus Movement Comments Flowsheet Date 07/18/2024 [facility] Score Blood Edema Fundus Height Fundus Units Glucose Ketones Leukocytes Nitrite Labor Signs Protein Cervic Dilation Cervic Effacement Cervic Station Type Weight in lbs Pre/Post Dialysis Refused 125.970663776769 BP Diastolic BP Location Tested BP Systolic BP Type 62 L arm 97 sitting Fetus Heart Rate Present A 144 Fetus Movement A Yes Comments no complaints, NST and BPP t val, growth ultrasound showed growth restriction MFM consult pending. Flowsheet Date 07/25/2024 [facility] Score Blood Edema Fundus Height Fundus Units Glucose Ketones Leukocytes Nitrite Labor Signs Protein Cervic Dilation Cervic Effacement Cervic Station Type Weight in lbs Pre/Post Dialysis Refused BP Diastolic BP Location Tested BP Systolic BP Type Fetus Heart Rate Present Fetus Movement Comments Flowsheet Date 07/25/2024 [facility] Score Blood Edema Fundus Height Fundus Units Glucose Ketones Leukocytes Nitrite Labor Signs Protein Cervic Dilation Cervic Effacement Cervic Station Type Weight in lbs Pre/Post Dialysis Refused 124.689430467494 BP Diastolic BP Location Tested BP Systolic BP Type 76 L arm 109 sitting Fetus Heart Rate Present A 151 Fetus Movement A Yes Comments Reassuring testing , MFM consult is pending, reports good movement Flowsheet Date 08/02/2024 [facility] Score Blood Edema Fundus Height Fundus Units Glucose Ketones Leukocytes Nitrite Labor Signs Protein Cervic Dilation Cervic Effacement Cervic Station Type Weight in lbs Pre/Post Dialysis Refused Weight 125.964665424801 BP Diastolic BP Location Tested BP Systolic BP Type 72 L arm 105 sitting Fetus Heart Rate Present Fetus Movement Comments Flowsheet Date 08/02/2024 [facility] Score Blood Edema Fundus Height Fundus Units Glucose Ketones Leukocytes Nitrite Labor Signs Protein Cervic Dilation Cervic Effacement Cervic Station Type Weight in lbs Pre/Post Dialysis Refused 125.159291314166 BP Diastolic BP Location Tested BP Systolic BP Type 72 L arm 105 sitting Fetus Heart Rate Present A 144 Fetus Movement A Yes Comments Reassuring testing , MFM consult has been delayed for uncertain reasons. To follow-up on MFM consult and get it as soon as possible. To get Doppler flow study immediately. Flowsheet Date 08/06/2024 [facility] Score Blood Edema Fundus Height Fundus Units Glucose Ketones Leukocytes Nitrite Labor Signs Protein Cervic Dilation Cervic Effacement Cervic Station Type Weight in lbs Pre/Post Dialysis Refused BP Diastolic BP Location Tested BP Systolic BP Type Fetus Heart Rate Present Fetus Movement Comments Flowsheet Date 08/07/2024 [facility] Score Blood Edema Fundus Height Fundus Units Glucose Ketones Leukocytes Nitrite Labor Signs Protein Cervic Dilation Cervic Effacement Cervic Station Type Weight in lbs Pre/Post Dialysis Refused BP Diastolic BP Location Tested BP Systolic BP Type Fetus Heart Rate Present Fetus Movement Comments Flowsheet Date 08/07/2024 [facility] Score Blood Edema Fundus Height Fundus Units Glucose Ketones Leukocytes Nitrite Labor Signs Protein Cervic Dilation Cervic Effacement Cervic Station neg none Type Weight in lbs Pre/Post Dialysis Refused Weight 125.334797009291 BP Diastolic BP Location Tested BP Systolic BP Type 68 L arm 103 sitting Fetus Heart Rate Present A 145 Fetus Movement A Yes Comments Patient c/o of slight Braxto n Espino and lower pressure. Reassuring testing yesterday with good Doppler flow studies. To see MFM very soon. Growth is improved Yesterday. Reactive NST today blood sugars are good Flowsheet Date 08/15/2024 [facility]om[facility] Score Blood Edema Fundus Height Fundus Units Glucose Ketones Leukocytes Nitrite Labor Signs Protein Cervic Dilation Cervic Effacement Cervic Station Type Weight in lbs Pre/Post Dialysis Refused BP Diastolic BP Location Tested BP Systolic BP Type Fetus Heart Rate Present Fetus Movement Comments Flowsheet Date 08/15/2024 [facility] Score Blood Edema Fundus Height Fundus Units Glucose Ketones Leukocytes Nitrite Labor Signs Protein Cervic Dilation Cervic Effacement Cervic Station 1cm Type Weight in lbs Pre/Post Dialysis Refused Weight 129.51939154053 BP Diastolic BP Location Tested BP Systolic BP Type 75 L arm 110 sitting Fetus Heart Rate Present A 145 Fetus Movement A Yes Comments no complaints, no problems, routine care, no contractions, no vaginal bleeding, no loss of fluid, no cramping Flowsheet Date 08/22/2024 [facility] Score Blood Edema Fundus Height Fundus Units Glucose Ketones Leukocytes Nitrite Labor Signs Protein Cervic Dilation Cervic Effacement Cervic Station Type Weight in lbs Pre/Post Dialysis Refused BP Diastolic BP Location Tested BP Systolic BP Type Fetus Heart Rate Present Fetus Movement Comments Flowsheet Date 08/22/2024 [facility] Score Blood Edema Fundus Height Fundus Units Glucose Ketones Leukocytes Nitrite Labor Signs Protein Cervic Dilation Cervic Effacement Cervic Station 2cm Type Weight in lbs Pre/Post Dialysis Refused 129.467618352674 BP Diastolic BP Location Tested BP Systolic BP Type 64 L arm 97 sitting Fetus Heart Rate Present A 144 Fetus Movement A Yes Comments Blood sugars are well contro lled, following growth closely, testing reassuring. Flowsheet Date 08/29/2024 [facility]omack Score Blood Edema Fundus Height Fundus Units Glucose Ketones Leukocytes Nitrite Labor Signs Protein Cervic Dilation Cervic Effacement Cervic Station Type Weight in lbs Pre/Post Dialysis Refused BP Diastolic BP Location Tested BP Systolic BP Type Fetus Heart Rate Present Fetus Movement Comments Flowsheet Date 08/29/2024 [facility] Score Blood Edema Fundus Height Fundus Units Glucose Ketones Leukocytes Nitrite Labor Signs Protein Cervic Dilation Cervic Effacement Cervic Station Type Weight in lbs Pre/Post Dialysis Refused Weight 130.904380991408 BP Diastolic BP Location Tested BP Systolic BP Type 79 L arm 106 sitting Fetus Heart Rate Present A 145 Fetus Movement A Yes Comments no complaints, no problems, routine care, no contractions, no vaginal bleeding, no loss of fluid, no cramping Flowsheet Date 09/05/2024 [place] Score Blood Edema Fundus Height Fundus Units Glucose Ketones Leukocytes Nitrite Labor Signs Protein Cervic Dilation Cervic Effacement Cervic Station Type Weight in lbs Pre/Post Dialysis Refused BP Diastolic BP Location Tested BP Systolic BP Type Fetus Heart Rate Present Fetus Movement Comments Flowsheet Date 09/05/2024 [place] Score Blood Edema Fundus Height Fundus Units Glucose Ketones Leukocytes Nitrite Labor Signs Protein Cervic Dilation Cervic Effacement Cervic Station Type Weight in lbs Pre/Post Dialysis Refused BP Diastolic BP Location Tested BP Systolic BP Type Fetus Heart Rate Present Fetus Movement Comments Flowsheet Date 09/05/2024 [place] Score Blood Edema Fundus Height Fundus Units Glucose Ketones Leukocytes Nitrite Labor Signs Protein Cervic Dilation Cervic Effacement Cervic Station Type Weight in lbs Pre/Post Dialysis Refused Weight [id number] BP Diastolic BP Location Tested BP Systolic BP Type 73 L arm 110 sitting Fetus Heart Rate Present Fetus Movement A Yes Comments no complaints, no problems, routine care, no contractions, no vaginal bleeding, no loss of fluid, no cramping. good blood sugars, reassuring testing Menstrual History Last Menstrual Date Menses Monthly On Bcp Conception Prior Menses Frequency Hcg Plus Date Menarche Onset Age 0411/28/2023 true Genetic Screening And Infection History Question Response Note Mental Retardation/Autism false Patient's Age Will Be 35 Years Or Older At Estim ated Date of Delivery false Thalassemia (Tunisian, Japanese, Mediterranean, Or Background): MCV < 80 false Neural Tube Defect (Meningomyelocele, Spina Bifi da, Or Anencephaly) false Congenital Heart Defect false Down Syndrome false Navid-Sachs (eg, Mosque, Cajun, Z[place]ian-Juana Diaz) f alse Tyson Disease false Sickle Cell Disease Or Trait () false Hemophilia Or Other Blood Disorders false Muscular Dystrophy false Cystic Fibrosis false Enedina's Chorea false Intellectual Disability/Autism false If Yes, Was Person Tested For Fragile X? false Other Inherited Genetic Or Chromosomal Disorder false Maternal Metabolic Disorder (eg, Type 1 Diabetes , PKU) false Patient Or Baby's Father Had A Child With Defects Not Listed Above false Recurrent Loss, Or A Stillbirth false Medications (including Suppl ements, Vitamins, Herbs, OTC Drugs), Illicit/Recreational Drugs, Alcohol false If Yes, Agent(s) And Strength/Dosage false Any Other Genetic History false Live With Someone With TB Or Exposed To TB false Patient Or Partner Has History Of Genital Herpes false Rash Or Viral Illness Since Last Menstrual Perio d false History Of STD, Gonorrhea, Chlamydia, HPV, Syphi lis false Other Infection History false History of HIV false History of Hepatitis false Prior GBS-infected child false Hemoglobinopathy Or Carrier false Other Structural Defect false Recent Travel History Outside of Country false Delivery Information Delivery Date Delivery Type Labor Anesthesia Weeks Gestation Incision Type Labor Labor Length Hrs Delivered By Post Complications Tubal Sterilization Discharge Date Comments Discharge Information Feeding Method Contraceptive Method Maternal HG B and HCT Levels
--- NOTE | 2024-09-11 20:43 | PC.NURSE ---
Pt discharged with instructions to keep next scheduled appointment and when to return to the unit, pt verbalizes understanding.
--- NOTE | 2024-09-11 21:49 | OBADM ---
This patient, Yanique Mccarthy, admitted to the OB room Labor/Delivery/Recovery 103 for observation. Patient/family oriented to hospital policies and general routines including ID bracelet, bed and alarms, visiting hours, pain management, procedures, bathroom and other care routines, personal items, smoking policy, room service/diet, and visiting hours. Patient/Family are encouraged to report perceived risks to care and to ask questions if they do not understand what they are told or what they should do.
--- NOTE | 2024-09-12 12:37 | PM.OBTRLD ---
OB - Triage/Final Diagnosis Visit Information Date of evaluation: 09/11/24 Reason for evaluation: threatened labor Comments/Additional reasons for admission: I have assessed the risk for this patient, Yanique Mesa Shari, and determined that she would benefit from observation care. Evaluation Vital signs: Vital Signs - 24 hr 09/11/24 19:53 09/11/24 21:49 Temperature 36.3 C L Oxygen Delivery Room Air
== END 2024-09-11 20:43 | disposition home or self-care (01) ==
PROVIDERS: Admitting Provider Obstetrics & Gynecology; Visit Provider Obstetrics & Gynecology
DX: O47.1 False labor at or after 37 completed weeks of gestation (principal); Z3A.39 39 weeks gestation of pregnancy
CPT/HCPCS: G0378; G0379

== ENCOUNTER 2024-09-16 06:01 | Inpatient (IN) | payer BC, SELFPAY ==
[2024-09-16] VITALS (91 sets, daily range): BP systolic 85–148; BP diastolic 36–126; PULSE 54–231; RESP 16–20; TEMP 36.4–37.5; O2SAT 95–100; BMI 23.8
--- OUTSIDE RECORDS SUMMARY | 2024-09-16 06:06 | XMS_ITS | Data Portability ---
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 [id number] Dominick Ward MD [facility] [address],[place] [address] 04/17/2023 09:21:20 04/17/2023 10:13:00 Anxiety 97330148 F41.9 This patient is a 28-year-ol d female who presents for follow-up on anxiety. She is doing well. Medication has been effective. She has responded to well. She denies any untoward side effects. She will follow-up in 3 months. Will continue the current dose [id number] Arlene Tobin [facility] [address],[place] [address] 08/03/2023 14:49:53 08/03/2023 15:38:52 Dyspareunia 28330013 N94.10 tender uterus on pelvic exam [id number] Dominick Ward MD [facility] [address],[place] [address] 08/10/2023 15:12:16 08/10/2023 16:14:25 Dyspareunia 95340466 N94.10 28-year-ol d female with dyspareuni a. [...] ne only contracept ion at this time. [id number] Edie [facility] [address],[place] [address] 01/25/2024 11:23:33 01/25/2024 12:02:53 screening 912213642 Z36.87 Z3A.01 [id number] Dominick Ward MD [facility] [address],[place] [address] 01/25/2024 11:24:01 01/25/2024 12:58:22 Amenorrhea 66873705 N91.2 this patient is an 29-year-ol d [...] minutes total on the patient's care. [id number] [facility] [address],[place] [address] 02/29/2024 10:39:47 02/29/2024 11:38:03 screening 621887159 Z36.82 Z3A.12 [id number] Dominick Ward MD [facility] [address],[place] [address] 02/29/2024 10:40:10 02/29/2024 12:59:35 Routine care 558579086 Z34.01 [id number] Dominick Ward MD [facility] [address],[place] [address] 03/28/2024 10:36:12 03/28/2024 11:32:35 Routine care 210275593 Z34.01 [id number] Edie Saenz [facility] [address],[place] [address] 04/25/2024 14:18:13 04/25/2024 15:01:49 screening for malformation 774809124 Z36.3 Z3A.20 [id number] Dominick Ward MD [facility] [address],[place] [address] 04/25/2024 14:37:29 04/25/2024 15:55:02 Routine care 349222361 Z34.01 [id number] Dominick Ward MD [facility] [address],[place] [address] 05/23/2024 14:50:33 05/23/2024 15:34:30 Routine care 858147518 Z34.01 [id number] Dominick Ward MD [facility] [address],[place] [address] 06/20/2024 10:41:45 06/20/2024 11:36:07 Routine care 756867694 Z34.01 [id number] Carlotta Astorga, [facility] [address],[place] [address] 07/05/2024 15:42:11 07/05/2024 16:22:15 Gestation period, 30 weeks 09278058 Z3A.30 [id number] Arlene Tobin [facility] [address],[place] [address] 07/18/2024 13:44:07 07/18/2024 14:47:46 Small for gestational age fetus 179365062 O36.5999 O43.113 Z3A.32 [id number] Dominick Ward MD [facility] [address],[place] [address] 07/18/2024 13:44:25 07/18/2024 15:43:41 Gestational diabetes mellitus 45619513 O24.419 565655 Elizabeth Roth [facility] [address],[place] [address] 07/25/2024 15:44:43 07/25/2024 16:45:18 Gestational diabetes mellitus 06467047 O24.419 [id number] Dominick Ward MD [facility] [address],[place] [address] 07/25/2024 15:45:05 07/25/2024 17:15:17 Routine care 916703052 Z34.01 [id number] Victoria Melendez [facility] [address],[place] [address] 08/02/2024 13:56:40 08/06/2024 03:11:39 growth restriction 64240132 O36.5999 [id number] Dominick Ward MD [facility] [address],[place] [address] 08/02/2024 13:57:11 08/02/2024 15:20:10 Routine care 858950025 Z34.01 [id number] Edie Saenz [facility] [address] [place] [address] 08/06/2024 16:15:11 08/06/2024 16:55:25 Small for gestational age fetus 950909522 O36.5930 Z3A.34 [id number] Elizabeth Roth [facility] [address],[place] [address] 08/07/2024 15:27:46 08/07/2024 17:27:24 Gestational diabetes mellitus 19113878 O24.419 [id number] Dominick Ward MD [facility] [address],[place] [address] 08/07/2024 15:28:34 08/07/2024 17:06:37 Routine care 309007286 Z34.01 [id number] [facility] [address],[place] [address] 08/15/2024 15:30:17 08/15/2024 17:20:32 Gestational diabetes mellitus 55374772 O24.419 898142 Dominick Ward MD [facility] [address],[place] [address] 08/15/2024 15:30:38 08/15/2024 17:18:05 Routine care 353877359 Z34.01 [id number] [facility] [address],[place] [address] 08/22/2024 16:21:07 08/22/2024 17:02:47 Gestational diabetes mellitus 70187486 O24.419 [id number] Dominick Ward MD [facility] [address],[place] [address] 08/22/2024 16:21:26 08/23/2024 07:17:32 Routine care 153834521 Z34.01 [id number] Dominick Ward MD [facility] [address],[place] [address] 08/29/2024 14:01:44 08/29/2024 15:36:43 Routine care 882389553 Z34.01 [id number] Victoria Melendez [facility] [address],[place] [address] 08/29/2024 14:03:40 08/30/2024 10:41:43 Gestational diabetes mellitus 13029436 O24.419 [id number] Arlene Tobin [facility] [address],[place] [address] 09/05/2024 14:02:21 09/05/2024 14:33:29 Small for gestational age fetus 151362335 O36.5930 O24.410 Z3A.39 [id number] [facility] [address],[place] [address] 09/05/2024 14:02:36 09/05/2024 17:18:28 Gestational diabetes mellitus 66280430 O24.419 [id number] Dominick Ward MD [facility] [address],[place] [address] 09/05/2024 14:22:25 09/05/2024 15:28:06 Routine care 544665026 Z34.01 [id number] [facility] [address],[place] [address] 09/12/2024 15:26:37 09/12/2024 17:33:59 Gestational diabetes mellitus 54390021 O24.419 [id number] Dominick Ward MD [facility] [address],[place] [address] 09/12/2024 15:26:56 09/12/2024 17:28:54 Routine care 449511195 Z34.01 Health Concerns Section Related Observation LastModified by Organization Detai ls LastModified Time None Recorded Concern Status LastModified by Organization Details LastModified Time None Recorded Advance Directives Directive N: Payers Encounter Date Sequence Insurance Name Policy Number Policy Frey Covered Member ID Frey Member ID Guarantor Name 09/05/2024 1 [place] [id number] Yanique Micnheimer [id number] Yanique Micnheimer 09/05/2024 1 [place] [id number] Yanique Micnheimer [id number] Yanique Micnheimer 09/05/2024 1 [place] [id number] Yanique Micnheimer [id number] Yanique Micnheimer 09/12/2024 1 [place] [id number] Yanique Micnheimer [id number] Yanique Mccarthy 09/12/2024 1 [place] [id number] Yanique Mccarthy [id number] Yanique Mccarthy OBGyn Episode Ob Episode Information Episode Created Date Number of Fetuses Patient Bloodtype Patient rh Status Prepregnancy Weight lbs Domestic Partner Domestic Partner Phone Father Name Heavy Antiarmor Weapons Infantryman Status 08/11/19 23 1 O Positive 107 CLOSED Fetus Data First Name Last Name Admitted to NICU Weight (g) Sex Living Outcome Pediatric Complications Fetus ID Race Codes Race Delivery Type Gab 2806.60 05 M true Full Term [id number] Primary Problems Problem Notes PNL WNL/NIPT NL XY Problem Name Start Date End Date Resolution Snomed Code Not e Gestational diabetes mellitus 89986994 BS QID , antena melody testing 32wks Incomplete breech presentation 20817941 footling breech Reno Calculation Initial Reno Date [...] Gestation 0 [email or web address] 08/11/2022 02/24/20 23 0 Pre-josefina Flowsheet Flowsheet Date 08/11/2022 Womack Score Blood Edema Fundus Height Fundus Units Glucose Ketones Leukocytes Nitrite Labor Signs Protein Cervic Dilation Cervic Effacement Cervic Station 12 Type Weight in lbs Pre/Post Dialysis Refused Weight 106.78927157128 BP Diastolic BP Location Tested BP Systolic [...] Weight in lbs Pre/Post Dialysis Refused Weight 108.768222103603 BP Diastolic BP Location Tested BP Systolic [...] Weight in lbs Pre/Post Dialysis Refused Weight 109.590338793672 BP Diastolic BP Location Tested BP Systolic [...] Weight in lbs Pre/Post Dialysis Refused Weight 116.18704155293 BP Diastolic BP Location Tested BP Systolic [...] Weight in lbs Pre/Post Dialysis Refused Weight 122.066835682137 BP Diastolic BP Location Tested BP Systolic [...] Weight in lbs Pre/Post Dialysis Refused Weight 122.767369344778 BP Diastolic BP Location Tested BP Systolic [...] Weight in lbs Pre/Post Dialysis Refused Weight 123.000713291355 BP Diastolic BP Location Tested BP Systolic [...] Weight in lbs Pre/Post Dialysis Refused Weight 125.055519694401 BP Diastolic BP Location Tested BP Systolic [...] Weight in lbs Pre/Post Dialysis Refused Weight 123.544409182107 BP Diastolic BP Location Tested BP Systolic [...] Weight in lbs Pre/Post Dialysis Refused Weight 125.138135364477 BP Diastolic BP Location Tested BP Systolic [...] Weight in lbs Pre/Post Dialysis Refused Weight 126.60925788265 BP Diastolic BP Location Tested BP Systolic [...] Weight in lbs Pre/Post Dialysis Refused Weight 126.83178186798 BP Diastolic BP Location Tested BP Systolic [...] Weight in lbs Pre/Post Dialysis Refused Weight 127.162524341913 BP Diastolic BP Location Tested BP Systolic [...] Weight in lbs Pre/Post Dialysis Refused Weight 114.794430586948 BP Diastolic BP Location Tested BP Systolic [...] Estim ated Date of Delivery false Thalassemia (Russian, Honduran, Mediterranean, Or Background): MCV < 80 false Neural Tube Defect (Meningomyelocele, Spina Bifi da, Or Anencephaly) false Congenital Heart Defect false Down Syndrome false Navid-Sachs (eg, Rastafari, Cajun, Yoruba-Sampson) f alse Tyson Disease false Sickle Cell Disease Or Trait () false Hemophilia Or Other Blood Disorders false Muscular Dystrophy false Cystic Fibrosis false [place]'s Chorea false Intellectual Disability/Autism false If Yes, [...] Domestic Partner Domestic Partner Phone Father Name Heavy Antiarmor Weapons Infantryman Status 02/29/20 24 1 O Positive OPEN Fetus Data First Name Last Name Admitted to NICU Weight (g) Sex Living Outcome Pediatric Complications Fetus ID Race Codes Race Delivery Type [id number] Problems Problem Notes Growth at 27th %tile at 20 w eeksfailed 1 hr gtt Problem Name Start Date End Date Resolution Snomed Code Not e Anemia 06/24/2024 414660277 1 tab slo wfe daily Gestational diabetes mellitus 99743702 BS QID , serial growth 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 796584 0 32wk repeat growth u/s growth restriction 11942 007 [facility] 08/12 815AM Level II US & 09/06 0900 Level II US Resolved 09/02 MFM EFW 30% section 84650156 wan ts to Reno Calculation Initial Reno Date Initial Exam Date Initial Exam Provider Initial Ultrasound Date Last Menstrual Period Date Ultra Sound Weeks Gestation 09/12/2024 02/29/2024 01/25/2024 11/28/2023 7 Eighteen To Twenty Week Rneo Update Ultra Sound Date Fundal Height At [...] Weight in lbs Pre/Post Dialysis Refused Weight 98.6618109462073 BP Diastolic BP Location Tested BP Systolic [...] Type Weight in lbs Pre/Post Dialysis Refused 103.213145438391 BP Diastolic BP Location Tested BP Systolic [...] Type Weight in lbs Pre/Post Dialysis Refused 107.992983300098 BP Diastolic BP Location Tested BP Systolic [...] Type Weight in lbs Pre/Post Dialysis Refused 115.985170368188 BP Diastolic BP Location Tested BP Systolic [...] Type Weight in lbs Pre/Post Dialysis Refused 120.860519304791 BP Diastolic BP Location Tested BP Systolic [...] Type Weight in lbs Pre/Post Dialysis Refused 125.000953455220 BP Diastolic BP Location Tested BP Systolic [...] Type Weight in lbs Pre/Post Dialysis Refused 125.010863050449 BP Diastolic BP Location Tested BP Systolic [...] Type Weight in lbs Pre/Post Dialysis Refused 124.434921703357 BP Diastolic BP Location Tested BP Systolic [...] Weight in lbs Pre/Post Dialysis Refused Weight 125.104813613836 BP Diastolic BP Location Tested BP Systolic BP Type 72 L arm 105 sitting Fetus Heart Rate Present Fetus Movement Comments Flowsheet Date 08/02/2024 Womack Score Blood Edema Fundus Height Fundus Units Glucose Ketones Leukocytes Nitrite Labor Signs Protein Cervic Dilation Cervic Effacement Cervic Station Type Weight in lbs Pre/Post Dialysis Refused 125.069444573542 BP Diastolic BP Location Tested BP Systolic [...] Weight in lbs Pre/Post Dialysis Refused Weight 125.314737059165 BP Diastolic BP Location Tested BP Systolic [...] Weight in lbs Pre/Post Dialysis Refused Weight 129.35127056277 BP Diastolic BP Location Tested BP Systolic [...] Type Weight in lbs Pre/Post Dialysis Refused 129.843837195692 BP Diastolic BP Location Tested BP Systolic [...] Weight in lbs Pre/Post Dialysis Refused Weight 130.257069290072 BP Diastolic BP Location Tested BP Systolic [...] Weight in lbs Pre/Post Dialysis Refused Weight 129.17643427489 BP Diastolic BP Location Tested BP Systolic BP Type 73 L arm 110 sitting Fetus Heart Rate Present Fetus Movement A Yes Comments no complaints, no problems, routine care, no contractions, no vaginal bleeding, no loss of fluid, no cramping. good blood sugars, reassuring testing Flowsheet Date 09/12/2024 Womack Score Blood Edema Fundus Height Fundus Units Glucose Ketones Leukocytes Nitrite Labor Signs Protein Cervic Dilation Cervic Effacement Cervic Station Type Weight in lbs Pre/Post Dialysis Refused BP Diastolic BP Location Tested BP Systolic BP Type Fetus Heart Rate Present Fetus Movement Comments Flowsheet Date 09/12/2024 Womack Score Blood Edema Fundus Height Fundus Units Glucose Ketones Leukocytes Nitrite Labor Signs Protein Cervic Dilation Cervic Effacement Cervic Station 2cm Type Weight in lbs Pre/Post Dialysis Refused 132.066166185881 BP Diastolic BP Location Tested BP Systolic BP Type 73 125 Fetus Heart Rate Present Fetus Movement A Yes Comments no complaints, no problems, routine care, no contractions, no vaginal bleeding, no loss of fluid, no cramping Reactive nonstress test Menstrual History Last Menstrual Date Menses Monthly On Bcp Conception Prior Menses Frequency Hcg Plus Date Menarche Onset Age 0411/28/2023 true Genetic Screening And Infection History Question Response Note Mental Retardation/Autism false Patient's Age Will Be 35 Years Or Older At Estim ated Date of Delivery false Thalassemia (Russian, Honduran, Mediterranean, Or Background): MCV < 80 false Neural Tube Defect (Meningomyelocele, Spina Bifi da, Or Anencephaly) false Congenital Heart Defect false Down Syndrome false Navid-Sachs (eg, Rastafari, Cajun, Yoruba-Sampson) f alse Tyson Disease false Sickle Cell [...]
--- OUTSIDE RECORDS SUMMARY | 2024-09-16 06:06 | XMS_ITS | Referral Summary ---
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 Gender Identity Not on file Sexual Orientation [...] Most Recently Relevant to Health Maintenance Insurance [employer] OOS Member Subscriber Plan / Payer (Ef fective 2019-Present) Name:Yanique Mccarthy Relation to Subscriber:Self Name:Yanique Mccarthy Payer ID:[id number] (NAIC) Type:EMILY DEL ROSARIO Address: [facility] [id number] [place] [id number] [employer] ACCESS OOS Care Teams Director Translational Relationship Specialty Start Date End Date Mahesh Mock Jr., PA PCP - General Family Medicine 03/22/21 Fernanda Rojas MD [address] [place] [address] Consulting Physician Family Medicine 03/22/21
--- OUTSIDE RECORDS SUMMARY | 2024-09-16 06:06 | XMS_ITS | Patient Health Summary ---
Author Organization [facility] Address [address] [place] [address] Care Team Providers Care Silk Screen Repairer Name Role Phone Unavailable Primary Care Provider Unavailabl e Note from [facility],non-owned Affiliates and Associated Physician Practices is amultiple site organization consisting of ambulatory clinics and hospital sitesin [place], [place], [place] and [place]. This disclosure is being madepursuant to the Care Everywhere program and may not contain all information available regarding this patient. Last updated 18.[facility] Social History Tobacco Use Types Packs/Day Years [...] * SONOGRAM - COMPLETE (09/02/2024 8:57 AM INTERNATIONAL TRADE ANALYST) Only the most recent of2 resultswithin the [...] 6 lb 14 oz EFW by Hadlock (PLT-EV-OX-FL) appropriate Growth Overview Exam date [place] BPD [...] Cisterna magna. Heart / Thorax 4-chamber view. 7-zkozhh-[id number] view. Great vessels. Right lung. Left lung. [...] up as clinically indicated Coding ====== Procedures 74214: US Preg Uterus Follow Up [place] PACS Anatomical Region Laterality Modality Other 09/02/2024 8:57 AM INTERNATIONAL TRADE ANALYST R Hernan Ward MD [facility] ORDERABLES
--- OUTSIDE RECORDS SUMMARY | 2024-09-16 06:06 | XMS_ITS | Clinical Summary ---
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
--- NOTE | 2024-09-16 06:24 | P.PNAN_ITS ---
Anes - Eval Pre Procedure Procedure: Labor epidural Date/Time: 09/16/24 06:24 Surgeon: Ed Preop Diagnosis: Abdominal pain with contractions Pre Op Diagnosis: Labor Patient Data Age: 29 Gender: F Height: Weight: Allergies Allergy/AdvReac Type Severity Reaction Status Date / Time No Known Allergies Allergy Verified 09/11/24 21:43 Home Medications ?Medication ?Instructions ?Recorded ?Confirmed ?Type famotidine 20 mg tablet (Pepcid) 20 mg PO HS 01/25/23 09/11/24 History vits no.126-ferrous fum 1 tablet PO DAILY 01/25/23 09/11/24 History 28 mg iron-folic acid 800 mcg tablet (Classic ) : gestational age HCG: positive Patient hx anesthesia problems: none Family hx anesthesia problems: none Results Review: All pre-operative results and documents have been reviewed as part of the pre- operative evaluation. [facility] Past Medical History Medical History (Updated 09/16/24 @ 06:26 by Joseph Diop Jr., CRNA) GERD (gastroesophageal reflux disease) Term Surgical History Surgical History (Updated 09/16/24 @ 06:25 by Joseph Diop Jr., CRNA) Previous section Family History Family History Father Diabetes mellitus Mother Depression Social History Social History Smoking status: Never smoker Substance use: never Lack of Transportation: No Lack of Food: Never True Current Housing: I Have Housing Concerned About Future Housing: No Difficulty Paying Gas/Electric Bills: No Difficulty Paying for Meds: No Currently Unemployed: No Education: Bachelor's Degree Difficulty w/ Childcare or Family Care: No Spiritual care concerns: No Exam Day of Procedure 09/16/24 06:24 Patient weight: overweight
--- NOTE | 2024-09-16 06:43 | LDADM ---
This patient, Yanique Mccarthy, was admitted to Labor/Delivery/Recovery 102 on 09/16/24 at 06:01. Plans for labor, pain management and were discussed with patient. Patient/family oriented to hospital policies and general routines including ID bracelet, bed and alarms, visiting hours, pain management, procedures, bathroom and other care routines, personal items, smoking policy, room service/diet and guest tray routines, security routines, and visiting hours. Patient/Family are encouraged to report perceived risks to care and to ask questions if they do not understand what they are told or what they should do. See OBIX for further documentation.
[2024-09-16 06:46] LABS: Basophils Percent Auto 0.3 % (0.2-1.2); Eosinophils Absolute Auto 0.1 K/mm3 (0-0.3); Eosinophils Percent Auto 1.1 % (0-4.4); Hematocrit 36.9 % (37.0-47.0); Hemoglobin 11.6 g/dL (12.0-15.0); Immature Granulocyte Absolute 0.05 K/mm3 (0.00-0.031); Immature Granulocyte Percent A 0.4 % (0-0.5); Lymphocytes Absolute Auto 2.32 K/mm3 (0.9-3.2); Mean Corpuscular HGB Conc 31.4 g/dl (32-36); Mean Corpuscular Hemoglobin 29.1 pg (26-34); Mean Corpuscular Volume 92.5 fl (80-100); Mean Platelet Volume 9.8 fl (7.4-10.4); Monocytes Absolute Auto 0.7 K/mm3 (0.1-0.6); Monocytes Percent Auto 6.4 % (2.6-8.5); Neutrophils Absolute Auto 8.3 K/mm3 (1.3-6.7); Neutrophils Percent Auto 71.8 % (45.5-73.1); Platelet Count Result 243 k/mm3 (150-375); Red Blood Count 3.99 M/mm3 (4.2-5.4); Red Cell Distribution Width 13.9 % (11.5-14.5); White Blood Count 11.6 K/mm3 (4.5-10.0)
[2024-09-16] MEDS: LACTATED RINGERS 1,000 ML 125 ML IV CONT ×2 (06:55→08:45)
[2024-09-16] MEDS: OXYTOCIN 30 UNITS/NS 500 ML 30 UNITS/500 ML BAG 125 UNITS IV CONT (06:55)
[2024-09-16 07:24] LABS: Glucose Point of Care 98 mg/dl (65-105)
[2024-09-16 07:37] LABS: HIV 1/2 Ab P24 Ag Result Negative (Negative)
[2024-09-16 07:57] LABS: Rapid Plasma Reagin Non-Reactive (NonReactive)
--- NOTE | 2024-09-16 10:20 | PM.IMHP ---
H&P: HPI History of Present Illness Date/Time: 09/16/24 10:20 Chief Complaint: Term Narrative: 29-year-old multiparous female with previous delivery attempting TOLAC. Prolonged heart rate deceleration. Proceed with delivery. The patient understands the details of the procedure. The procedure has been explained in detail. She understands the risks. She understands that injuries may occur that result in hospitalization, more surgery, and severe illness. She understands risk of hemorrhage and infection. She denies any chest pain or shortness of breath. She denies any nausea, vomiting, fever, chills. Review of Systems Review of Systems: All systems reviewed & are unremarkable except as noted in HPI and below Constitutional: Constitutional: Denies chills, Denies fatigue, Denies fever(s) and Denies weakness Eyes: Eyes: Denies blurry vision, Denies change in vision, Denies loss of peripheral vision, Denies loss of vision, Denies other visual disturbances and Denies eye pain ENT: Denies vertigo, Denies dizziness, Denies hearing loss, Denies mouth pain, Denies nasal obstruction, Denies neck mass and Denies neck pain Cardiovascular: Cardiovascular: Denies chest pain, Denies diaphoresis, Denies syncope, Denies leg edema and Denies dyspnea Respiratory: Respiratory: Denies chest congestion, Denies cough, Denies hemoptysis, Denies dyspnea and Denies wheezing Gastrointestinal: Gastrointestinal: Denies abdominal pain, Denies constipation, Denies diarrhea, Denies nausea and Denies vomiting Genitourinary: Genitourinary: Denies hematuria, Denies change in libido, Denies nocturia, Denies genital lesions, Denies flank pain and Denies urinary urgency Musculoskeletal: Musculoskeletal: Denies abnormal gait, Denies back pain, Denies myalgias, Denies arthralgias, Denies joint swelling, Denies muscle weakness and Denies neck pain Integumentary/Breasts: Skin/Breast: Denies swelling, Denies breast pain, Denies breast mass, Denies dry skin, Denies nipple discharge, Denies unusual bruising and Denies jaundice Neurologic: Denies Neuro-related abnormal movements, Denies Abnormal speech present, Denies abnormal gait, Denies behavioral changes, Denies confusion, Denies vertigo, Denies dizziness, Denies syncope, Denies loss of vision, Denies memory loss, Denies convulsions and Denies weakness Psychiatric: Psychiatric: Denies abnormal sleep pattern, Denies behavioral changes, Denies change in libido, Denies confusion, Denies depression, Denies anhedonia and Denies memory loss Endocrine: Endocrine: Reports no additional endocrine complaints, Denies change in libido and Denies fatigue Hematologic/Lymphatic: Hematologic/Lymphatic: Reports no additional hematologic/lymphatic complaints Allergic/Immunologic: Allergic/Immunologic: Reports no additional allergic/immunologic complaints and Denies wheezing PMFSH Past Medical History Medical History (Updated 09/16/24 @ 06:26 by Joseph Diop Jr., CRNA) GERD (gastroesophageal reflux disease) Term Surgical History Surgical History (Updated 09/16/24 @ 10:22 by Dominick Ward MD) Previous section Family History Family History Father Diabetes mellitus Mother Depression Social History Social History Smoking status: Never smoker Substance use: never Do You Feel Safe in your Home?: Yes Lack of Transportation: No Lack of Food: Never True Current Housing: I Have Housing Concerned About Future Housing: No Difficulty Paying Gas/Electric Bills: No Difficulty Paying for Meds: No Currently Unemployed: No Education: Bachelor's Degree Difficulty w/ Childcare or Family Care: No Spiritual care concerns: No Meds Home Medications and Allergies Home Medications ?Medication ?Instructions ?Recorded ?Confirmed ?Type famotidine 20 mg tablet (Pepcid) 20 mg PO HS 01/25/23 09/16/24 History vits no.126-ferrous fum 1 tablet PO DAILY 01/25/23 09/16/24 History 28 mg iron-folic acid 800 mcg tablet (Classic ) Allergies Allergy/AdvReac Type Severity Reaction Status Date / Time No Known Allergies Allergy Verified 09/11/24 21:43 Vital Signs Vital Signs - 24 hr 09/16/24 07:06 09/16/24 07:20 09/16/24 07:31 Temperature 98.6 F Pulse Rate 86 68 Blood Pressure 126/84 119/74 Pulse Oximetry 09/16/24 07:45 09/16/24 08:00 09/16/24 08:16 Temperature Pulse Rate 62 72 63 Blood Pressure 122/75 136/91 H 148/74 H Pulse Oximetry 09/16/24 08:31 09/16/24 08:39 09/16/24 08:40 Temperature Pulse Rate 87 92 Blood Pressure 111/92 H 85/60 L Pulse Oximetry 97 09/16/24 08:44 09/16/24 08:47 09/16/24 08:49 Temperature Pulse Rate 67 68 Blood Pressure 140/91 H 133/94 H Pulse Oximetry 97 98 09/16/24 08:50 09/16/24 08:52 09/16/24 08:54 Temperature Pulse Rate 132 H 80 172 H Blood Pressure 86/37 L 129/80 146/126 H Pulse Oximetry 99 09/16/24 08:56 09/16/24 08:57 09/16/24 08:58 Temperature 98.1 F Pulse Rate 231 H 69 Blood Pressure 137/54 L 111/62 Pulse Oximetry 09/16/24 08:59 09/16/24 09:01 09/16/24 09:03 Temperature Pulse Rate 68 Blood Pressure 121/74 133/114 H Pulse Oximetry 99 09/16/24 09:04 09/16/24 09:07 09/16/24 09:08 Temperature Pulse Rate 68 68 Blood Pressure 97/76 L 113/67 Pulse Oximetry 100 09/16/24 09:11 09/16/24 09:12 09/16/24 09:13 Temperature Pulse Rate 63 118 H Blood Pressure 121/75 97/82 L Pulse Oximetry 98 09/16/24 09:15 09/16/24 09:17 09/16/24 09:18 Temperature Pulse Rate 75 76 Blood Pressure 112/83 113/74 Pulse Oximetry 100 09/16/24 09:20 09/16/24 09:24 09/16/24 09:26 Temperature Pulse Rate 89 79 79 Blood Pressure 118/85 117/89 111/75 Pulse Oximetry 100 09/16/24 09:29 09/16/24 09:34 09/16/24 09:39 Temperature Pulse Rate Blood Pressure Pulse Oximetry 96 98 99 09/16/24 09:44 09/16/24 09:49 Temperature Pulse Rate Blood Pressure Pulse Oximetry 100 100 Exam Const: General: cooperative, healthy appearing, comfortable and no acute distress Orientation/consciousness: oriented to person, oriented to place and oriented to time HENMT: Head: normal to inspection Ears: external ears normal Face/Nose/Sinus: Normal external nose present and normal facial exam Face and sinus: normal facial exam Eyes: General: appearance normal, both eyes and all related structures Neck: Neck: normal visual inspection, trachea midline and supple Resp: Auscultation: clear to auscultation bilaterally, no crackles, no rales, no rhonchi and no wheezes Cardio: Rate: regular rate Rhythm: regular rhythm Heart sounds: no click, no murmurs and no rubs GI: GI Palp: No abdominal tenderness, No Soft to palpation, No Tenderness to palpation present (GI) and No Palpable mass present Auscultation: normal bowel sounds Skin: General skin exam: normal color and no rashes or lesions noted Neuro: General: oriented to person, oriented to place and oriented to time Extrem: General: normal to inspection, no joint enlargement, no clubbing, cyanosis or edema, no pedal edema and no calf tenderness Psych: Appearance: grossly normal Mental Status: mental status grossly normal Speech and movement: Normal speech and movement present H&P: Results Labs Labs: Short CBC 09/16/24 Range/Units 06:37 WBC 11.6 H (4.5-10.0) K/mm3 Hgb 11.6 L (12.0-15.0) g/dL Hct 36.9 L (37.0-47.0) % Plt Count 243 (150-375) k/mm3 Assessment and Plan Assessment and plan (1) Term : Code(s): Z34.90 - Encounter for supervision of normal , unspecified, unspecified trimester Status: Acute (2) Previous delivery, delivered: Code(s): O34.219 - Maternal care for unspecified type scar from previous delivery Status: Acute Plan 29-year-old multiparous female with previous delivery attempting TOLAC. Prolonged heart rate deceleration. Proceed with delivery. She understands risks, benefits, and alternatives. She has completed the consent process was reprocessed. Stat .
--- NOTE | 2024-09-16 10:23 | W.PM.OBCSD ---
OB - Delivery Note Procedure Delivery date: 09/16/24 Pre-op diagnosis: Non-Reassuring Status Post-op Diagnosis: Same Induction method: AROM and Per Pitocin Protocol Procedure Performed: Repeat Surgeon: Dominick Ward MD Anesthesia type: Epidural Description of Procedure/Findings: Findings-uterine rupture, partially in the abdomen, placenta partially in the abdomen. Minimal uterine bleeding. The patient was taken the operating room.? She was prepped and draped in dorsal supine position with a leftward tilt.? This was done after spinal anesthetic was applied.? A low-transverse skin incision was made and carried down till of the fascia with the knife.? The fascial incision was made with the knife.? The fascial incision was extended laterally with Cao scissors.? and placental or bulging through the uterus, partially in the abdomen. Infant was delivered. Placenta was delivered. ? The infant was delivered.? The cord was clamped and cut and the was handed off to waiting pediatric staff.? Cord bloods were obtained.? The placenta was removed manually.? The uterus was exteriorized.? The uterus was cleared of all clots, debris and membranes.? The uterus was closed in 0 Vicryl running lock fashion.? An imbricating over a was placed along the incision line as well.? The uterus was returned to the abdomen.? The gutters were cleared of all clots and debris.? The fascia was closed with 0 Vicryl running fashion.? The subcutaneous tissue was irrigated pinpoint bleeders were cauterized.? The skin was closed with subcuticular absorbable tacos.? The skin incision line was covered with glue.? The patient tolerated the procedure well.? She has taken recovery room in stable condition.? Sponge lap and needle counts were correct x2.? Pathology: None sent Complications: Other complications (Uterine rupture) Condition: Stable
--- NOTE | 2024-09-16 13:19 | PC.NURSE ---
Patient transferred to post room #290 via stretcher. Support person present. Oriented to unit, room, information board, rooming in, admission packet and security measures. Patient verbalizes understanding.
[2024-09-16] MEDS: ACETAMINOPHEN 325 MG TABLET 650 MG PO ×2 (13:39→20:10)
[2024-09-16] MEDS: SIMETHICONE 80 MG TAB.CHEW PO ×2 (13:39→16:44)
[2024-09-16] MEDS: KETOROLAC 15 MG/ML VIAL (*BKC) IV PUSH ×2 (13:39→20:10)
--- NOTE | 2024-09-16 14:45 | PC.NURSE ---
Breast pump provided due to [ transfer to [facility]]. Patient has pumped with a previous child and is familiar with using one. Instructions given on cleaning, care, usage, that there should be no pain, pumping schedule for milk production, collection, and storage of human milk. Patient was assessed for correct placement, flange size (21mm), to pump for nipple stretching/stimulation for adequate milk production every 3 hours (8 times in 24 hours) 1-2 times at night. Parents are encouraged to record the pumping schedule on the pumping log.?Mother voiced understanding of the education shared along with mom/baby guide for additional resource information. Reported to the Primary RN.
[2024-09-16] MEDS: LIDOCAINE 5% PATCH 1 PATCH TRANSDERM (16:44)
[2024-09-16] MEDS: LORATADINE 10 MG TABLET PO (16:44)
[2024-09-16] MEDS: DEXTROSE 5%/0.45% SOD CHL 1,000 ML 125 ML IV CONT (16:44)
[2024-09-16] MEDS: KCL 20 MEQ/D5/0.45% SOD CHL 1,000 ML 125 ML IV CONT (22:22)
[2024-09-17 00:25] VITALS: BP 104/59; PULSE 71; RESP 16; TEMP 36.7; O2SAT 97
[2024-09-17] MEDS: KETOROLAC 15 MG/ML VIAL (*BKC) IV PUSH ×2 (02:08→08:00)
[2024-09-17] MEDS: ACETAMINOPHEN 325 MG TABLET 650 MG PO ×4 (02:08→22:42)
[2024-09-17 05:29] LABS: Basophils Percent Auto 0.2 % (0.2-1.2); Eosinophils Percent Auto 0.2 % (0-4.4); Immature Granulocyte Absolute 0.08 K/mm3 (0.00-0.031); Immature Granulocyte Percent A 0.5 % (0-0.5); Lymphocytes Absolute Auto 1.61 K/mm3 (0.9-3.2); Lymphocytes Percent Auto 10.4 % (18.3-44.2); Mean Corpuscular HGB Conc 31.3 g/dl (32-36); Mean Corpuscular Hemoglobin 29.2 pg (26-34); Mean Corpuscular Volume 93.3 fl (80-100); Mean Platelet Volume 9.9 fl (7.4-10.4); Monocytes Percent Auto 6.4 % (2.6-8.5); Neutrophils Absolute Auto 12.8 K/mm3 (1.3-6.7); Neutrophils Percent Auto 82.3 % (45.5-73.1); Platelet Count Result 196 k/mm3 (150-375); Red Blood Count 3.43 M/mm3 (4.2-5.4); White Blood Count 15.5 K/mm3 (4.5-10.0)
[2024-09-17] MEDS: SIMETHICONE 80 MG TAB.CHEW PO ×2 (08:01→16:06)
[2024-09-17] MEDS: MULTIVIT/MIN/PREN/FOL AC/IRON TABLET 1 TAB PO (08:01)
[2024-09-17] MEDS: DOCUSATE SODIUM 100 MG CAPSULE PO ×2 (08:01→16:06)
[2024-09-17 08:05] VITALS: BP 117/79; PULSE 83; RESP 16; TEMP 37.6; O2SAT 98
--- NOTE | 2024-09-17 08:47 | P.PNOB_ITS ---
OB - PN: Subj Subjective Date/time seen: 09/17/24 08:47 Patient comments: no complaints, pain well controlled, tolerating diet and flatus present OB - PN: Obj Data Labs 09/17/24 05:00 Labs: Laboratory Results - last 24 hr 09/17/24 05:00 WBC 15.5 H RBC 3.43 L Hgb 10.0 L Hct 32.0 L MCV 93.3 MCH 29.2 MCHC 31.3 L RDW 14.0 Plt Count 196 MPV 9.9 Immature Gran % (Auto) 0.5 Neut % (Auto) 82.3 H Lymph % (Auto) 10.4 L [place] % (Auto) 6.4 Eos % (Auto) 0.2 Baso % (Auto) 0.2 Lymph # (Auto) 1.61 [place] # (Auto) 1.0 H Eos # (Auto) 0.0 Baso # (Auto) 0.0 Abs Immat Gran (auto) 0.08 H Absolute Neuts (auto) 12.8 H Absolute Nucleated RBC 0.000 Nucleated RBC % 0.0 OB - PN A/P Plan day: 1 Comments: Post Op LTCS - no problems, routine recovery Time Spent With Patient Time: Total time spent is greater than 50% in coordination of care (as documented) at patient's floor/unit and/or counseling patient: Exam 2 Const: General: cooperative, healthy appearing, comfortable and no acute distress Resp: Auscultation: no crackles, no rales, no rhonchi and no wheezes Cardio: Rhythm: regular rhythm Heart sounds: no click and no murmurs GI: Inspection: non-distended Auscultation: normal bowel sounds Extrem: General: normal to inspection, no pedal edema and no calf tenderness
--- NOTE | 2024-09-17 09:20 | PC.NURSE ---
Introductions were made, then consulted with patient to assess needs related to . Discussed with mother her?pumping experience last night. She is doing well and the pump is feeling comfortable. She has collected several syringes of colostrum to send to the NICU. She intends to go on a pass today to [facility] to see baby. Resources provided for inpatient and outpatient services with the mom/baby guide and name/number written on the communication board. Mother voiced understanding of information and will call if there is a request for assistance. Reported to the Primary RN.
--- NOTE | 2024-09-17 09:56 | WPDANLDPN2 ---
Anes-Prog Note L&D Date/Time: 09/17/24 09:56 Neuro status: Neuro function grossly intact. Cardiovascular status: normal Respiratory status: normal Airway patency: baseline Mental status: baseline Post-Op hydration status: normal Vital Signs: Last Vital Signs Temp 37.6 C 09/17/24 08:05 Pulse 83 09/17/24 08:05 Resp 16 09/17/24 08:05 BP 117/79 09/17/24 08:05 Pulse Ox 98 09/17/24 08:05 O2 Del Method Room Air 09/16/24 12:30 Pain score (VAS): 0 I/O: Intake & Output 09/16/24 09/17/24 09/17/24 23:59 07:59 15:59 Intake Total 480 600 0 Output Total 825 2350 Balance -345 1750 0 Post-procedural complaints: none Patient feedback: Patient satisfied with anesthetic care.
--- NOTE | 2024-09-17 09:56 | WPDANLDNPN2 ---
Anes-Prog Note L&D-Neuraxial Date/Time: 09/17/24 09:56 Neuraxial medications: epidural PF morphine Opiod-related complaints: none Patient feedback: Patient satisfied with post-operative pain management.
[2024-09-17] MEDS: IBUPROFEN 600 MG TABLET PO ×2 (16:06→22:43)
[2024-09-17 16:44] VITALS: BP 106/70; PULSE 92; RESP 16; TEMP 37.6; O2SAT 99
--- NOTE | 2024-09-17 17:01 | PC.NURSE ---
1630. This patient, Yanique Mccarthy, returned from her day pass to [facility] on 09/17/24 at 1630.
[2024-09-17] MEDS: LIDOCAINE 5% PATCH 1 PATCH TRANSDERM (17:21)
[2024-09-17 20:31] VITALS: BP 103/66; PULSE 77; RESP 16; TEMP 37.3; O2SAT 99
[2024-09-18] MEDS: IBUPROFEN 600 MG TABLET PO ×4 (05:06→23:05)
[2024-09-18] MEDS: ACETAMINOPHEN 325 MG TABLET 650 MG PO ×4 (05:07→23:05)
[2024-09-18 05:12] VITALS: BP 104/63; PULSE 81; RESP 14; TEMP 37.1; O2SAT 100
[2024-09-18] MEDS: SIMETHICONE 80 MG TAB.CHEW PO ×3 (07:13→16:45)
[2024-09-18] MEDS: DOCUSATE SODIUM 100 MG CAPSULE PO ×2 (07:13→16:45)
[2024-09-18] MEDS: MULTIVIT/MIN/PREN/FOL AC/IRON TABLET 1 TAB PO (07:13)
[2024-09-18 07:15] VITALS: BP 126/68; PULSE 72; RESP 16; TEMP 36.9; O2SAT 98
[2024-09-18 23:05] VITALS: BP 109/69; PULSE 81; RESP 18; TEMP 36.6; O2SAT 97
[2024-09-19] MEDS: IBUPROFEN 600 MG TABLET PO (04:56)
[2024-09-19] MEDS: ACETAMINOPHEN 325 MG TABLET 650 MG PO (04:56)
[2024-09-19] MEDS: MULTIVIT/MIN/PREN/FOL AC/IRON TABLET 1 TAB PO (07:22)
[2024-09-19] MEDS: SIMETHICONE 80 MG TAB.CHEW PO (07:22)
[2024-09-19] MEDS: DOCUSATE SODIUM 100 MG CAPSULE PO (07:22)
[2024-09-19 07:50] VITALS: BP 100/66; PULSE 99; RESP 16; TEMP 36.9; O2SAT 97
--- NOTE | 2024-09-19 08:53 | P.PNOB_ITS ---
OB - PN: Subj Subjective Date/time seen: 09/19/24 08:53 Patient comments: no complaints, pain well controlled, incisional pain, tolerating diet and flatus present OB - PN: Obj Data Labs 09/17/24 05:00 OB - PN A/P Plan day: 3 Plan: routine care, discharge home and other Comments: Incision check in one week. Given precautions Time Spent With Patient Time: Total time spent is greater than 50% in coordination of care (as documented) at patient's floor/unit and/or counseling patient: Exam 2 Const: General: comfortable, no acute distress and alert Resp: Effort & Inspection: normal respiratory effort Auscultation: no crackles, no rales and no rhonchi Cardio: Rate: regular rate Heart sounds: no click, no murmurs and no rubs GI: Inspection: non-distended GI Palp: No Tenderness to palpation present (GI) Auscultation: normal bowel sounds Other: Incision - CDI Extrem: General: normal to inspection, no pedal edema and no calf tenderness
--- NOTE | 2024-09-19 08:54 | P.DS_ITS ---
DS: Admitting Diagnosis Discharge Date 09/19/2024 Admitting Diagnosis Term DS: Discharge Diagnosis Discharge Diagnosis (1) Uterine rupture during labor: Code(s): O71.1 - Rupture of uterus during labor Status: Acute OB - DS: Summary OB Procedures : None OB Procedures Intrapartum: Spontaneous Vag Delivery OB Procedures: : None Peripartum Data Procedures: Procedures Operation Date: 09/16/24 09:50 Actual Procedure Side Surgeon p Section Not Applicable Dominick Ward MD Time Spent with Patient Time attestation: Total time spent providing and/or coordinating discharge services: Discharge Plan Discharge Discharging Clinician: Dominick Ward Patient Disposition: Home, Self-Care Activity: pelvic rest Diet: regular Discharge Instructions: Pumping Plan? You are exclusively pumping at discharge. It is important to pump regularly and consistently to help maintain your milk supply. Regular milk removal is necessary for continued milk production. You need to pump at least 8 times every 24 hours. You can use hands on pumping to get better results with pumping and to encourage your breasts to produce more milk. Hands on pumping instructions:? * Massage your breasts before applying the breast pump.? * Pump both breasts at once. Use your hands to massage and compress while you pump.? * Stop pumping when the milk stops flowing? * Massage your breasts again? * End the pumping session by pumping or hand expressing one breast at a time wh ile massaging and compressing your breast. Go back and forth between each breast until the milk stops flowing.? * Allow 25 minutes to complete this routine??? It is important to be sure you have a well-fitted pump flange. Consult your pump manual for recommended flange sizing or consult a professional.?? YOU SHOULD SET YOUR PUMP TO THE HIGHEST COMFORTABLE LEVEL. INCREASE THE SUCTION GRADUALLY UNTIL YOU REACH THE CORRECT SETTING. PUMPING SHOULD NOT HURT.? ? CONSULT YOUR PUMP MANUAL FOR GUIDANCE ON PUMP SETTINGS AND FUNTIONS. MOST PUMPS RECOMMEND 1-2 MINUTES OF THE QUICK ?MASSAGE? MODE, THEN SWITCHING TO THE SLOWER ?EXPRESSION? MODE FOR THE REMAINDER OF THE PUMPING SESSION.?Pump each breast for 10-15 minutes. Pumping will help stimulate your breasts to produce milk.? Follow the collection and storage sheet given to you in the Mom and Baby Guide. Remember to keep track of all feedings/elimination on the blue worksheet provided.? ? Clean your pump parts between each pumping session according to the guidelines in your pump manual. It is recommended that you use a basin that is reserved for washing pump parts that is separate from your sink to prevent contamination. If you are pumping for an ill or infant, you should disinfect your pump parts once a day by boiling them in hot water for 5 minutes after cleaning.? ? Ways to increase your milk supply:? * Increase frequency of pumping (10-12 times every 24 hours)? * Lots of skin to skin (if infant is able), especially before pumping? * Use warm washcloths before pumping and gentle breast massage before and during pumping? * Reduce stress, relax with music, get plenty of rest, and drink to thirst? * Warm pump flanges with warm water before pumping? * Pump until the milk stops flowing, then pump for 2 more minutes to fully empty the breast? * Pump at least once through the night, milk shouldn?t remain in the breast for longer than 4 hours? * Power pumping: Pump for 15-20 minutes, rest for 10 minutes, pump for 10, rest for 10, pump for 10. Do this routine 1-2 times a day for several days or until you notice an increase in milk supply. Pump normally between power pumping sessions.? ? You may contact the Team at [phone] for questions and appointments.? These discharge instructions have been explained to me and I have received a copy.? Patient Instructions: Antibiotic Form Patient Language: [place] Stand Alone Forms: General Discharge Information Follow-up/Referrals: Dominick Ward MD [Physician] - Discharge Medications: New hydrocodone-acetaminophen 5-325 mg tablet 1 - 2 tablet PO Q6H PRN (Reason: pain) Qty: 25 0RF Continued famotidine [Pepcid] 20 mg Tablet 20 mg PO HS Classic 28 mg iron- 800 mcg Tablet 1 tablet PO DAILY Date of admission: 09/16/24 06:01 Primary Care Provider: UNKNOWN,DOCTOR Admitting Provider: Dominick Ward Attending physician on admission: Dominick Ward Condition: Stable
[2024-09-20 08:06] VITALS: BP 110/73; PULSE 100; RESP 18; TEMP 36.5; O2SAT 100
== END 2024-09-19 09:55 | disposition home or self-care (01) | DRG 786 ==
LOC: ANHLDR 06:04 → ANHOB2 13:22
PROVIDERS: Admitting Provider Obstetrics & Gynecology; Visit Provider Obstetrics & Gynecology
PROC: 10D00Z1 Extraction of Products of Conception, Low, Open Approach (ICD-10-PCS; CPT 59514; principal; 2024-09-16 09:50)
DX: O34.219 Maternal care for unspecified type scar from previous cesarean delivery (principal); O71.1 Rupture of uterus during labor; O76 Abnormality in fetal heart rate and rhythm complicating labor and delivery; O24.429 Gestational diabetes mellitus in childbirth, unspecified control; O99.62 Diseases of the digestive system complicating childbirth; K21.9 Gastro-esophageal reflux disease without esophagitis; K92.89 Other specified diseases of the digestive system; Z3A.40 40 weeks gestation of pregnancy; Z37.0 Single live birth
CPT/HCPCS: 36415; 82948; 85025; 86592; 86703; 86850; 86900; 86901; A9270; G0432; J1885; J2250; J2274; J2590; J2795; J3480; J7120